=== PATIENT | male | born 1985 | race Two or more races ===

== ENCOUNTER 2020-07-10 11:23 | Emergency (ER) | payer MEDICAID, SELFPAY ==
--- NOTE | 2020-07-10 | ECG_ITS ---
Test Reason : CHEST PAIN Blood Pressure : / mmHG Vent. Rate : 070 BPM Atrial Rate : 070 BPM P-R Int : 158 ms QRS Dur : 092 ms QT Int : 376 ms P-R-T Axes : 061 058 018 degrees QTc Int : 406 ms Normal sinus rhythm Normal ECG When compared with ECG of 15-JUN-2014 14:34, No significant change was found Referred By: Generic ED Physician Electronically Signed By:Mayank Londono
[2020-07-10 11:31] VITALS: BP 156/95; PULSE 75; RESP 16; TEMP 36.7; O2SAT 98; BMI 37.1
--- NOTE | 2020-07-10 12:06 | ED_ITS ---
HPI - Chest Pain General Chief Complaint: Chest Pain Stated Complaint: arm numbness, chest pain Time Seen by Provider: 07/10/20 12:06 Source: patient Mode of arrival: ambulatory Limitations: no limitations History of Present Illness HPI narrative: 34-year-old male who presents emergency department for evaluation numbness, weakness and pain in his upper extremities from the elbows to his hands, x2 weeks. 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 He states the past 2 weeks he has been lifting heavy windows repetitively. He states that his arms become numb from the wrist down to the hands any develops pain in his fingers, mainly over the middle and ring fingers of both hands. He states that his hands seem to be weak and is having difficulty lifting the heavy windows. He states the pain is mild to moderate intensity and is intermittent. He states that yesterday he developed left-sided chest pain that lasted 1 hour. He again developed left- sided chest pain at 10:00 a.m. which is been on often lasting minutes. Describes the chest pain as a tightness. He denies any weakness in his lower extremities. He denied fever, chills, rhinorrhea, cough, shortness of breath, lightheadedness, dizziness, nausea, vomiting, abdominal pain, changes bowel movements. Related Data Previous Rx's Medication Instructions Recorded acetaminophen [Tylenol Extra 1,000 mg PO Q6H PRN #30 tab 07/10/20 Strength] ibuprofen 600 mg PO Q6H PRN #30 tab 07/10/20 Allergies Allergy/AdvReac Type Severity Reaction Status Date / Time No Known Allergies Allergy Verified 07/10/20 11:34 Review of Systems Review of Systems: Yes all other systems are reviewed and are negative [facility] Past Medical History [facility] Narrative: Patient has a history of sleep apnea but has not gotten a CPAP machine, also has history of hypertension. Surgical history of hernia repair as a child. The patient smokes 3 cigarettes per day times 10 years, he states that he drinks 1 or 2 beers per day, he denies drug use. Medical History (Updated 07/10/20 @ 12:53 by Azeem Alfredo MD) Anxiety HTN (hypertension) Sleep apnea Social History Social History Alcohol intake: current Alcohol intake frequency: 0-2 drinks per day Smoking Status: Current every day smoker Use of substances other than those prescribed or required for medical reasons: No Advance Directives: No Advance Directives Information Provided: No Physical Exam Vital Signs: Vital Signs: Last Vital Signs Temp 98.0 F 07/10/20 11:31 Pulse 75 07/10/20 11:31 Resp 16 07/10/20 11:31 BP 156/95 H 07/10/20 11:31 Pulse Ox 98 07/10/20 11:31 Body Mass Index 37.1 Const: General: cooperative and healthy appearing Orientation/consciousness: oriented to person and oriented to place Limitations: no limitations HENMT: Head: Yes normal to inspection, Yes normocephalic and Yes atraumatic Ears: external ears normal General nose exam: Normal external nose present Face and sinus: Yes normal facial exam Mouth: Normal oral and palatal mucosa present Throat: Yes posterior oropharynx normal Eyes: Periorbital: periorbital findings normal Eyelids: Yes eyelids normal Conjunctivae: conjunctivae normal Sclerae: sclerae normal Corneas: cor neas normal Pupils: Equal, round and reactive pupils present Direct Ophthalmoscopy: normal light reflex Neck: Neck: Yes full ROM, Yes no lymphadenopathy, Yes no meningeal signs, Yes trachea midline and Yes supple Chest: Chest palpation & inspection: normal inspection of the chest and normal palpation of entire chest wall Resp: Effort & Inspection: normal respiratory effort and able to speak in complete sentences Auscultation: clear to auscultation bilaterally Cardio: Rate: regular rate Rhythm: regular rhythm Heart sounds: S1 normal heart sound present, S2 normal heart sound present and no murmurs GI: Inspection: Yes normal to inspection Palpation (GI): Soft to palpation, nontender, no guarding, not rigid and No hepatosplenomegaly present : General: Yes no CVA tenderness Back/Spine/Pelvis: Back: no CVA tenderness Cervical Spine: normal cervical lordosis Thoracic/Lumbar Spine: thoracic and lumbar spine normal to inspection Skin: Lesions: no lesions Rashes: no rashes Wounds: no wounds Neuro: General: oriented to person, oriented to place and no meningeal signs Cranial nerves: Yes CN's II-XII intact bilaterally and Yes Equal, round and reactive pupils present Cognition (Neuro): normal cognition Motor exam (neuro): 5/5 motor strength present throughout Extrem: Other: The patient has pain that radiates to his hands with percussion over the carpal tunnels, with flexing his wrist for 2 minutes, he has pain, numbness and tingly sensation in his hands bilaterally worse in the middle and ring fingers of both hands. He also has tenderness with palpation of his forearm and over his medial and lateral areas of his elbows bilaterally. Gener al: Yes normal to inspection Psych: Appearance: well kempt Mental Status: mental status grossly normal Speech and movement: Normal speech and movement present Affect: normal affect Attitude: cooperative Thought process: Normal thought process present Thought content: Normal thought content present Course Course Course Narrative: 34-year-old male who presents emergency department for evaluation of bilateral hand, wrist and forearm pain and numbness x2 weeks. Patient's examination is suggestive of bilateral carpal tunnel syndrome, may also have repetitive motions syndrome of his forearms. I believe that his symptoms involve both the median and ulnar nerves based on his symptoms. I did discuss this with the patient. Patient was placed in bilateral forearm splints. He was advised to take ibuprofen and Tylenol. The patient will need to follow-up with Occupational Health to determine his return to work status. He was given a note not return to work for 2 days and he should follow up within 1- 2 days with Occupational Health. The patient is experiencing chest pain but do not think that this is secondary to coronary artery disease, his 12 EKG was unremarkable. The chest pain is most likely musculoskeletal pain and is probably related to his work as well. Discharge Plan Discharge Clinical Impression: Chest pain, Repetitive motion disorder of both forearms, Carpal tunnel syndrome on both sides Patient Disposition: Home, Self-Care Instructions: Carpal Tunnel Surgery (DC) Additional Instructions: Wear the forearm splints for 2 weeks, take the splints off 4 times a day and apply ice for 15 minutes to your wrists and forearms to help reduce the pain and swelling. Take ibuprofen 600 mg, 1 pill every 6 hours for the next 4-5 days to help reduce the pain and swelling. Take extra-strength Tylenol 500 mg pills, 1 pill every 6 hours as needed for pain. You need to talk your employer and determine which Occupational Health Clinic yo u can follow-up with. I want you to follow-up with occupational health clinic within 1-2 days to determine when he can go back to work and if you go back to work with limited duty. If your implore allows, you can go to our [facility] , [facility] Follow-up with that [facility] in 1-2 days. Please return to the emergency department if your symptoms get worse or if you develop any symptoms that are concerning to you. Prescriptions: New ibuprofen 600 mg tablet 600 mg PO Q6H PRN (Reason: pain) Qty: 30 RF: 0 acetaminophen [Tylenol Extra Strength] 500 mg tablet 1,000 mg PO Q6H PRN (Reason: pain) Qty: 30 RF: 0 Stand Alone Forms: Work/School Release
--- NOTE | 2020-07-10 12:45 | PC.NURSE ---
pt is currently asleep, respirations even and unlabored.
--- NOTE | 2020-07-10 12:54 | PC.NURSE ---
pt reports bilateral wrist tingling/numbess that is going on for about two weeks, denies chest pain/sob
[2020-07-10 12:55] VITALS: BP 141/90; PULSE 75; RESP 20; O2SAT 96
== END 2020-07-10 13:12 | disposition home or self-care (01) ==
PROVIDERS: Emergency Provider Emergency Medicine Emergency Medical Services
DX: R07.9 Chest pain, unspecified (principal); G56.03 Carpal tunnel syndrome, bilateral upper limbs; R20.0 Anesthesia of skin; I10 Essential (primary) hypertension; Z79.899 Other long term (current) drug therapy; F17.200 Nicotine dependence, unspecified, uncomplicated; Z71.6 Tobacco abuse counseling
CPT/HCPCS: 93005; 99284

== ENCOUNTER → 2020-07-11 14:13 | Outpatient (BNVA) | payer OTHER, SELFPAY | PROVIDERS: Visit Provider Physician Assistant Medical | DX: G56.03 Carpal tunnel syndrome, bilateral upper limbs (principal) | CPT/HCPCS: 99203 ==

== ENCOUNTER → 2020-07-16 15:32 | Outpatient (BNVA) | payer OTHER, SELFPAY | PROVIDERS: Visit Provider Physician Assistant | DX: G90.513 Complex regional pain syndrome I of upper limb, bilateral (principal); M54.2 Cervicalgia | CPT/HCPCS: 99214 ==

== ENCOUNTER → 2020-07-27 13:48 | Outpatient (BNVA) | payer OTHER, SELFPAY | PROVIDERS: Visit Provider Physician Assistant Medical | DX: M54.2 Cervicalgia (principal); R20.2 Paresthesia of skin; G56.00 Carpal tunnel syndrome, unspecified upper limb | CPT/HCPCS: 72050; 99213 ==

== ENCOUNTER 2020-07-30 15:30 | Outpatient (RCR) | payer OTHER, SELFPAY ==
--- NOTE | 2020-07-16 16:08 | MHC.OT.OEV ---
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 Also reports numbness that is greatest in the evening and wakes him up at night. Was issued B/L splints by [facility]. 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 Unable to use gym due to pain. Sleep: Wakes up frequently in pain with sleep, wears braces at night Driving: Reports numbness with driving, trouble gripping steering wheel with B/L splints donned. Pain Assessment Pain Score: 8 Pain Scale Used: Numeric (0 - 10) Pain Location and Description: Constant numbess, pain comes and goes in B/L elbows, wrists and hands Aggravating Factors: Use of arms Alleviating Factors: Takes ibuprofen and tylenol for pain, tiger blam, heat/ice Skin and Soft Tissue Assessment Skin and Soft Tissue: Other Comments: continue to assess with f/u sessions Nerve assessment Ulnar Nerve: B/L Impaired Median Nerve: B/L Impaired Radial Nerve: Comments: refer to special tests Sensory Assessment Temperature: WFL Light Touch: B/L Impaired Proprioception: Vibration: Comments: [place] Monofilaments: L Index, Ring, Small 3.61, Middle and Thumb 4.31 R Ring, Small 3.61, Thumb, Index, Middle 4.31 Edema Assessment Upper Extremity: Right Impaired Left Impaired Lower Extremity: Comments: L wrist circ 18.5, MP circ 21.7 cm R wrist circ 19 cm, MP circ 22.5 cm Dexterity Assessment Dexterity: Left Impaired Comments: Functional dexterity: R 24 sec (functional), L 34 sec (minimally functional) Special Tests Comments: Reverse Phalens: numbness/tingling in L small, ring, middle; R ring finger R Tinel's (+) MF tingling, L WFL R resisted MF test (-) R resisted wrist extension (-) B/L (-) Froment's sign ulnar N resisted adduction L>R, weakness noted AROM(PROM) Strength Cervical Cervical Flexion: Cervical Extension: Cervical Lateral Flexion: Cervical Rotation: Comments: Pain on L cervical spine with chin tuck Elbow Flexion: WFL Extension: WFL Pronation: Supination: Comments: Flexion: Extension: Pronation: Supination: Comments: Wrist Flexion: R 50, L 55 Extension: R 55, L 47 Ulnar Deviation: Radial Deviation: Comments: Flexion: Extension: Ulnar Deviation: Radial Deviation: Comments: Digits Index MCP: PIP: DIP: Long MCP: PIP: DIP: Ring MCP: PIP: DIP: Small MCP: PIP: DIP: Comments: Gross Grasp: R 67 lbs, L 65 lbs Lateral Pinch: R 24 lbs, L 21 lbs Two-Point Pinch: R 15 lbs, L 13 lbs Three-Jaw Nicho: R 23 lbs, L 16 lbs Comments: Gross grasp with elbow extended: R 105lbs, L 80 lbs Patient Education Primary Language: Bengali Input Output Clerk Required: No Current Knowledge: Understands information with skills for self-management Teaching Method: Demonstration Handouts Verbal Education Needs Identified on Evaluation: ADL's Disease Information Exercise Pain How did patient/family demonstrate learning? Patient demonstrates Patient verbalizes Barriers to Learning: None Readiness for Learning: Accepting Who was educated? 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 He reports numbness and tingling in B/L hands and pain in his B/L medial and lateral elbows. He is L hand dominant and appears to have increased symptoms in the L hand. He reports 86% limitations per the QuickDash. He would benefit from a trial of skilled OT to reduce symptoms and maximize function. STG Duration: 3 weeks Short Term Goals: Ind HEP Report minimal sleep disturbances Reports <3/10 pain with light activities/IADLs Improve functional dexterity test by 5 seconds in L hand for ADLs L wrist extension >50 degrees Report decrease in numbness/tingling with use of B/L brace Demo good body mechanics with heavy lifting/work related tasks Reports <70% per QuickDash LTG Duration: Leisure Travel Agent Goals: see above Frequency and Duration: The patient will be seen 3x/week for 3 weeks Treatment Plan: Therapeutic Exercise Therapeutic Activity Home Exercise Program Splinting Neuro Re-ed Patient Education Desensitization/Sensory Re-ed Edema Control ADL Training Ultrasound NMES Iontophoresis Paraffin Fluidotherapy MHP Cold Packs Joint Mobilization Soft Tissue Mobilization Kinesiotaping Electronically Signed By: Mei Oliveira OT/s Reviewed/agree with student documentation: Yes Therapist: ARPAN Dye/L Please sign and return to therapist, Thank you for your referral.
== END 2020-07-30 16:13 | disposition other institution (70) ==
LOC: HO.OT 15:30
PROVIDERS: Visit Provider Physician Assistant Medical
DX: G56.03 Carpal tunnel syndrome, bilateral upper limbs (principal)
CPT/HCPCS: 97035; 97110; 97140; 97167

== ENCOUNTER → 2020-08-10 09:16 | Outpatient (BNVA) | payer OTHER, SELFPAY | PROVIDERS: PCP Family Medicine; Visit Provider Physician Assistant Medical | DX: M54.2 Cervicalgia (principal); R20.2 Paresthesia of skin | CPT/HCPCS: 99213 ==

== ENCOUNTER → 2020-08-29 14:48 | Outpatient (BNVA) | payer OTHER, SELFPAY | PROVIDERS: PCP Family Medicine; Visit Provider Physician Assistant Medical | DX: M54.2 Cervicalgia (principal); R20.2 Paresthesia of skin | CPT/HCPCS: 99213 ==

== ENCOUNTER 2020-08-29 16:00 | Outpatient (RCR) | payer OTHER, MEDICAID, SELFPAY ==
--- NOTE | 2020-08-10 14:24 | MHC.PT.EP ---
[facility] [place] Office [place] Office [place] Office [address] Chacho Perry [address] [phone] F: [phone] F: [phone] F: [phone] F: [phone] Physical Therapy Plan of Care Date of Evaluation: 08/10/20 Date of Surgery: N/A Diagnosis: cervicalgia Assessment: pt's signs and symptoms are consistent w/ peripheral neuropathy. pt presents to physical therapy with pain, decreased range of motion, decreased strength, impaired functional mobility, and impaired postural awareness. pt is a good candidate for skilled PT due to age, potential remediation of impairments, typical disease/condition progression and prognosis, comorbidities, and motivation. pt would benefit from tailored strengthening and stretching exercise program, functional training, postural re-training, neuromuscular re-education, modalities as needed for pain, equipment safety demonstration. Frequency and Duration: The patient will be seen 2x/wk for 5 wks Short Term Goals: pt will be I w/ HEP to promote self-management of condition. pt will improve B cervical sidebending and rotation by 10 degrees to improve ADL tolerance and increase pt independence. Jail Goals: pt will tolerate lifting 15# object from floor to overhead x5 reps to facilitate return to work. 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 Treatment Plan: Modalities to reduce pain, spasms and effusion. Manual therapy to restore motion and function. Therapeutic exercise to improve strength and flexibility. Neuromuscular re-education for posture and balance. Therapeutic activities to return to functional activities of daily living. Electronically signed by: Ariana Hagen PT, DPT Please sign and return to therapist. Thank you for your referral.
--- NOTE | 2020-09-11 10:17 | MHC.PT.DC ---
[facility] [place] Office [place] Office [place] Office [address] Chacho Perry [address] [phone] F: [phone] F: [phone] F: [phone] F: [phone] Physical Therapy Discharge Report Diagnosis: cervicalgia Date of Surgery: N/A Date of Evaluation: 08/10/20 Date of Discharge: 09/11/20 Treatments to Date: 5 Cancellations to Date: 2 No Shows to Date: 3 Discharge Status: Visit Non-compliance Discharge Summary: The patient was reporting an improvement in his cervical pain and was tolerating therapeutic exercises and activities better. He has had poor attendance over the past couple weeks with three consecutive no shows. Per [facility] Core Therapy policy, which the patient was aware of and signed, he is to be discharged for non-compliance. He is discharged from this physical therapy plan of care at this time. Electronically signed by: Ariana Hagen PT, DPT Please sign and return to therapist. Thank you for your referral.
== END 2020-09-11 10:17 | disposition other institution (70) ==
LOC: HO.PT 16:00
PROVIDERS: PCP Family Medicine; Visit Provider Physician Assistant Medical
DX: M54.2 Cervicalgia (principal)
CPT/HCPCS: 97012; 97110; 97162

== ENCOUNTER 2020-09-04 08:05 | Outpatient (REF) | payer OTHER, SELFPAY | END 2020-09-04 08:06 | disposition home or self-care (01) | LOC: HO.MRI 08:05 | PROVIDERS: Visit Provider Internal Medicine | DX: Z13.89 Encounter for screening for other disorder (principal) ==

== ENCOUNTER → 2020-09-12 15:23 | Outpatient (BNVA) | payer OTHER, SELFPAY | PROVIDERS: PCP Family Medicine; Visit Provider Physician Assistant Medical | DX: M54.2 Cervicalgia (principal); R20.2 Paresthesia of skin; M54.10 Radiculopathy, site unspecified | CPT/HCPCS: 99213 ==

== ENCOUNTER → 2020-09-21 11:30 | Outpatient (BNVA) | payer OTHER, SELFPAY | PROVIDERS: PCP Family Medicine; Visit Provider Physician Assistant | DX: G56.03 Carpal tunnel syndrome, bilateral upper limbs (principal); G24.8 Other dystonia | CPT/HCPCS: 99214 ==

== ENCOUNTER 2020-10-04 09:45 | Outpatient (REF) | payer OTHER, SELFPAY ==
--- NOTE | 2020-10-04 10:00 | EMG_ITS ---
Bilateral median and ulnar motor and sensory studies were performed. Bilateral radial sensory studies were performed and paraspinal muscles were tested with a needle. IMPRESSION: 1. [id number] bilateral median neuropathy across carpal tunnel. 2. Mild right ulnar neuropathy across cubital tunnel. MD LACEY Weldon/DAVION / [id number]
== END 2020-10-04 09:46 | disposition home or self-care (01) ==
LOC: HO.NEURO 09:45
PROVIDERS: PCP Family Medicine; Visit Provider Internal Medicine
DX: M79.641 Pain in right hand (principal); M79.642 Pain in left hand
CPT/HCPCS: 95886; 95911

== ENCOUNTER 2020-10-04 10:15 | Outpatient (REF) | payer MEDICAID, SELFPAY ==
--- NOTE | ~2020-10-04 | US_ITS ---
EXAMINATION: US ABDOMEN COMPLETE CLINICAL INFORMATION: Fatty liver. COMPARISON: CT abdomen and pelvis with contrast 12/24/2018, abdominal wall 04/19/2018, 04/20/2017 TECHNIQUE: Real-time imaging of the abdominal viscera. FINDINGS: PANCREAS: The pancreas is largely obscured by bowel gas and not imaged. ABDOMINAL AORTA: The proximal, mid, and distal segments are normal in caliber. INFERIOR VENA CAVA: Visualized portions are normal. LIVER: The liver is mildly enlarged measuring 20.2 cm in length. The liver surface is smooth. There is increased hepatic echogenicity consistent with hepatic steatosis. Minor focal sparing is seen adjacent to the gallbladder. There is no hepatic parenchymal lesion or intrahepatic ductal dilatation. Doppler shows portal flow towards the liver. GALLBLADDER: Gallbladder is distended normally. There is no stone or sludge or wall thickening. There is a stable solitary polyp dependent gallbladder near the fundus measuring 0.5 cm, similar to prior exam. Negative sonographic Davies's sign. No pericholecystic fluid. COMMON BILE DUCT: Normal in caliber measuring 0.3 cm in diameter. RIGHT KIDNEY: Normal. No hydronephrosis. No renal calculi or focal parenchymal lesions. The kidney measures 11.0 cm in maximum dimension. LEFT KIDNEY: Normal. No hydronephrosis. No renal calculi or focal parenchymal lesions. The kidney measures 13.3 cm in maximum dimension. SPLEEN: The spleen is upper limits of normal measuring 13.2 cm. The liver parenchyma is homogeneous. FREE FLUID: None. US/US abdomen complete IMPRESSION: 1. Mild hepatomegaly secondary to hepatic steatosis. 2. Stable gallbladder polyp 0.5 cm. No cholelithiasis, gallbladder wall thickening, or ductal dilatation. 3. Pancreas obscured by bowel gas and not imaged.
== END 2020-10-04 10:16 | disposition home or self-care (01) ==
LOC: HO.US 10:15
PROVIDERS: Visit Provider Family Medicine
DX: K76.0 Fatty (change of) liver, not elsewhere classified (principal); K82.4 Cholesterolosis of gallbladder
CPT/HCPCS: 76700

== ENCOUNTER → 2020-10-22 | Outpatient (BNVA) | payer OTHER, SELFPAY | PROVIDERS: PCP Family Medicine; Visit Provider Physician Assistant | DX: G56.03 Carpal tunnel syndrome, bilateral upper limbs (principal); G24.9 Dystonia, unspecified | CPT/HCPCS: 99213 ==

== ENCOUNTER → 2020-10-26 11:07 | Outpatient (BNVA) | payer OTHER, SELFPAY | PROVIDERS: PCP Family Medicine; Visit Provider Orthopaedic Surgery | DX: G56.03 Carpal tunnel syndrome, bilateral upper limbs (principal); G56.21 Lesion of ulnar nerve, right upper limb; M65.341 Trigger finger, right ring finger | CPT/HCPCS: 99202 ==

== ENCOUNTER 2020-11-13 09:19 | Day surgery (SDC) | payer OTHER, SELFPAY ==
[2020-11-07 13:08] VITALS: BMI 37.1
--- NOTE | 2020-11-12 10:59 | HO.ANESPROP2 ---
Documented by User: Stephanie Fanney 11/12/20 11:04 HPI - Anesthesia Eval Consult details Narrative: 35yo M for right Ring Finger Cubital Tunnel Release vs Transposition, Carpal Tunnel Release, A1 Rambo Trigger Release PMFSH Active Problems Active Problems: All Active Problems (Updated 10/26/20 @ 11:56 by Margareth Jama MD) Carpal tunnel syndrome of left wrist (Acute) Trigger finger, right ring finger (Acute) Cubital tunnel syndrome on right (Acute) Carpal tunnel syndrome of right wrist (Acute) Cervicalgia (Acute) Past Medical History Medical History Anxiety HTN (hypertension) Sleep apnea Social History Social History Alcohol intake: current Alcohol intake frequency: 0-2 drinks per day Patient Tobacco Use Status: Current everyday Tobacco user Use of substances other than those prescribed or required for medical reasons: No Have you been hit, kicked, punched, or otherwise hurt by someone within the past year? 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 Rate : 070 BPM Atrial Rate : 070 BPM P-R Int : 158 ms QRS Dur : 092 ms QT Int : 376 ms P-R-T Axes : 061 058 018 degrees QTc Int : 406 ms Normal sinus rhythm Normal ECG When compared with ECG of 15-JUN-2014 14:34, No significant change was found Assessment and Plan Assessment Anesthesia Assessment: Chart Reviewed Documented by User: Denton Shields MD 11/13/20 10:20 PMFSH Past Medical History Medical History Anxiety HTN (hypertension) Sleep apnea Social History Social History Alcohol intake: current Alcohol intake frequency: 0-2 drinks per day Patient Tobacco Use Status: Current everyday Tobacco user Use of substances other than those prescribed or required for medical reasons: No Have you been hit, kicked, punched, or otherwise hurt by someone within the past year? 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 Meds Allergies Allergy/AdvReac Type Severity Reaction Status Date / Time No Known Allergies Allergy Verified 11/13/20 09:37 Home Medications Medication Instructions Recorded Confirmed Last Taken Type cholecalciferol (vitamin D3) 1 tab PO DAILY 11/07/20 11/07/20 Unknown History hydrochlorothiazide 1 tab PO DAILY 11/07/20 11/07/20 Unknown History Exam Airway Mallampati Class: II TM Dist: >3cm Neck ROM: Full Loose/Missing/Broken Teeth: No Other: Short thick neck, facial hair Assessment and Plan Assessment Anesthesia Assessment: Anesthesia Plan Discussed and Chart Reviewed Final Anesthetic Review NPO: Yes ASA Class: II Final Preanesthetic Review: No Changes in Pt Med Stat, Meds/Allgs Chart Reviewed, Consent Obtained/Reviewed and Anes Risks/Benef Reviewed Patient Risk: High Procedure Risk: Low Anesthetic Plan Anesthetic Plan: GA Disposition: Standard PACU
[2020-11-13] VITALS (7 sets, daily range): BP systolic 141–186; BP diastolic 85–112; PULSE 96–116; RESP 18–20; TEMP 36.5–36.7; O2SAT 93–98
--- NOTE | 2020-11-13 09:13 | P.OP_ITS ---
Operative Note Operative Note Date of Service: 11/13/20 Narrative: Operative Note Narrative: Preop diagnosis: 1. right Cubital tunnel syndrome 2. Right carpal tunnel syndrome 3. Right ring finger trigger finger 4. Right middle finger trigger finger Postop diagnosis: Same Procedure: 1. right Cubital Tunnel Release and anterior transposition 2. Right carpal tunnel release 3. Right ring finger A1 amado release 4. Right middle finger A1 amado release Surgeon: Margareth Jama MD Anesthesia: General Findings: Thickening and fibrosis about the ulnar nerve at the cubital tunnel with an hourglass deformity of the ulnar nerve at the cubital tunnel Implants: none Tourniquet time: 60 minutes EBL: 5.0 ml Specimen: none Drains: None Complications: None Disposition: Brought to the recovery room in stable condition Plan: Follow-up in 10-14 days for wound check, and suture removal Indications: The patient is 35 years old man with right cubital tunnel syndrome, right carpal tunnel syndrome, and a right ring finger trigger finger . The risks and benefits of operative treatment, including but not limited to risk of damage to blood vessels, nerves, tendons, infection, recurrence, persistent pain or numbness, incomplete resolution of preoperative symptoms, or need for further surgery were discussed with the patient and they wished to proceed with surgery. Procedure: Once consent was obtained patient was brought back to the operating suite and placed in the operating table in a supine position. Perioperative antibiotics and anesthesia was administered by the anesthesia team. The limb was prepped and draped in a standard surgical fashion, and a sterile tourniquet applied to the proximal aspect of the right upper extremity. The limb was elevated exsanguinated with Esmarch bandage and the tourniquet inflated to 250 mm of mercury for a total tourniquet time of 60 minutes. Once assured that we had a good block, a 1.5 cm longitudinal incision was made centered over the right carpal tunnel. The incision was made through the skin to the subcutaneous tissues using a #15 blade. Dissection was made down to the level of the transverse carpal ligament with care being taken to protect the palmar cutaneous nerve. Once the transverse carpal ligament was clearly visualized, a longitudinal incision was made in the transverse carpal ligament 1st using a #15 blade, then using tenotomy scissors under direct visualization. Care was taken to look for and protect the motor branch of the median nerve when seen in this area. Once satisfied with our carpal tunnel release the wound was irrigated with normal saline. Once assured that we had a good block, a 1.5 cm oblique incision was made centered over the A1 amado of the right ring finger . The incision was made through the skin to the subcutaneous tissues using a #15 blade. Careful dissection was made down to the level of the A1 amado using tenotomy scissors, with care being taken to protect the nearby neurovascular structures. A longitu dinal incision was made in the A1 amado 1st using a #15 blade, then using tenotomy scissors under direct visualization. The A1 amado was noted to be thickened. Following our A1 amado release, we no longer saw any locking or catching of the digit with flexion and extension. Once assured that we had a good block, a 1.5 cm oblique incision was made centered over the A1 amado of the right middle finger . The incision was made through the skin to the subcutaneous tissues using a #15 blade. Careful dissection was made down to the level of the A1 amado using tenotomy scissors, with care being taken to protect the nearby neurovascular structures. A longitudinal incision was made in the A1 amado 1st using a #15 blade, then using tenotomy scissors under direct visualization. The A1 amado was noted to be thickened. Following our A1 amado release, we no longer saw any locking or catching of the digit with flexion and extension. A 6 cm gently curved but longitudinally oriented incision was made centered over the cubital tunnel of the right upper extremity. Incision was made through the skin to the subcutaneous tissues using a # 15 Blade. I then dissected down to the level of the medial epicondyle and the cubital tunnel using tenotomy scissors. Care was taken to protect the lateral antebrachial cutaneous nerve. The ulnar nerve was identified just posterior to the medial intermuscular septum. Small vessel loop was passed behind the ulnar nerve and used to apply gentle traction to facilitate our release. The ulnar nerve was released in a proximal to distal direction using tenotomy in iris scissors while directly visualizing and protecting the ulnar nerve. Thickening and fibrosis was appreciated about the ulnar nerve as it passed through the cubital tunnel. The ulnar nerve was assessed as I passed the elbow through full flexion and extension and was found to subluxate over the medial epicondyle. As the ulnar nerve appeared to subluxate over the medial epicondyle, the decision was made to proceed with an anterior ulnar nerve transposition. The subcutaneous tissue was carefully freed from the fascia anterior to the medial epicondyle creating an appropriate bed for the ulnar nerve transposition. The ulnar nerve was then freed and carefully transposed anterior to the medial epicondyle. Some of the subcutaneous fat in the anterior flap of tissues was carefully secured to the fascia about the medial epicondyle using some 3-0 Vicryl suture material. This created a sling to prevent posterior subluxation of the ulnar nerve. The ulnar nerve was evaluated in its transposition site and found to have good ability to glide and to be free from undo pressure from the anterior sling. At this point the tourniquet was deflated and hemostasis obtained with a brief period of local pressure and bipolar electrocautery. The wound was copiously irrigated with normal saline. The subcutaneous layer was closed with 4-0 Vicryl suture, and the skin edges were reapproximated with 5-0 nylon suture. The wound was infiltrated with some 0.25% plain Marcaine for postop pain control and sterile dressings and a posterior splint was applied. The patient appears to have tolerated the procedure well and with no complications. All digits were well vascularized conclusion of the case.
--- NOTE | 2020-11-13 09:53 | MHC.SHP ---
Pre-Procedural Eval Section A Date of Service: 11/13/20 Section B Chief Complaint: Trigger Finger, Carpal Tunnel syndrome, Lesion Allergies: Allergies Allergy/AdvReac Type Severity Reaction Status Date / Time No Known Allergies Allergy Verified 11/13/20 09:37 Plan I have reviewed the history and physical and performed a pertinent physical examination on my patient. No changes have occurred unless specified.
[2020-11-13] MEDS: Lactated Ringers 1,000 ML 100 ML IVCONT (10:05)
--- NOTE | 2020-11-13 10:18 | MHC.SHP ---
Pre-Procedural Eval Section A Date of Service: 11/13/20 Section B Chief Complaint: Trigger Finger, Carpal Tunnel syndrome, Lesion Allergies: Allergies Allergy/AdvReac Type Severity Reaction Status Date / Time No Known Allergies Allergy Verified 11/13/20 09:37 Plan I have reviewed the history and physical and performed a pertinent physical examination on my patient. the patient demonstrated that he now has a right middle finger trigger finger as well , and would like to have that taken care of. We added that to the consent and both initialed the consent to note that it was added.
[2020-11-13] MEDS: oxyCODONE HCl Immed Release 5 MG TABLET PO (13:01)
[2020-11-13] MEDS: Acetaminophen 325 MG TABLET 975 MG PO (13:02)
[2020-11-13] MEDS: Ketorolac Tromethamine 30 MG/ML VIAL IVPUSH (13:04)
== END 2020-11-13 12:45 | disposition home or self-care (01) ==
PROVIDERS: PCP Family Medicine; Visit Provider Orthopaedic Surgery
PROC: (CPT 64718; principal; 2020-11-13 11:00)
DX: G56.01 Carpal tunnel syndrome, right upper limb (principal); M65.341 Trigger finger, right ring finger; M65.331 Trigger finger, right middle finger; G56.21 Lesion of ulnar nerve, right upper limb; I10 Essential (primary) hypertension; G47.33 Obstructive sleep apnea (adult) (pediatric); F41.9 Anxiety disorder, unspecified; Z79.899 Other long term (current) drug therapy
CPT/HCPCS: 64721; 26055 ×2; 64718; J0690; J1100; J1885; J2250; J2405; J3010

== ENCOUNTER → 2020-11-21 15:23 | Outpatient (BNVA) | payer OTHER, SELFPAY | PROVIDERS: PCP Family Medicine; Visit Provider Physician Assistant | DX: M65.341 Trigger finger, right ring finger (principal); G56.21 Lesion of ulnar nerve, right upper limb; G56.01 Carpal tunnel syndrome, right upper limb | CPT/HCPCS: 99212 ==

== ENCOUNTER → 2020-11-26 12:54 | Outpatient (BNVA) | payer OTHER, SELFPAY | PROVIDERS: Visit Provider Orthopaedic Surgery | DX: G56.02 Carpal tunnel syndrome, left upper limb (principal); M65.341 Trigger finger, right ring finger; M65.331 Trigger finger, right middle finger; G56.21 Lesion of ulnar nerve, right upper limb | CPT/HCPCS: 99212 ==

== ENCOUNTER 2020-12-25 09:28 | Outpatient (RCR) | payer OTHER, MEDICAID, SELFPAY ==
--- NOTE | 2020-12-25 11:02 | MHC.OT.OEV ---
[address] [phone] F: [phone] Occupational Therapy Evaluation Diagnosis: Post-op R CTR, right D3 A1 amado release and ulnar nerve Date of Onset: Date of Surgery: 11/13/20 Attending Provider: Dr Jama Prescribed Treatment: Eval and Treat, desensitization MD Follow Up Appointment: History of Current Condition: 35 yo male w/ onset of carpal tunnel symptoms, cubital tunnel syndrome and right D3-D4 triggers since this past June, tried conservative treatment w/ OT with no significant improvements. EMG show [id number] bilateral median neuropathy across carpal tunnel. and mild right ulnar neuropathy across cubital tunnel. He is now post-op right carpal tunnel release and release A1 amado at D3-D4, as well as right cubital tunnel release and anterior transposition. He now presents for post-op rehab, continues to have pain in digits and palm and numbness at medial elbow. 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 prior to onset Enjoys writing music, plays basketball, working with exotic animals (snakes, fish, reptiles, etc) Living Situation, Family and/or Social Support: Lives alone Current Level of Function and Occupation Self Care, Employment, Leisure: Out of work since onset of injury Friend assists w/ lifting tanks and caring for animals Not playing basketball Using left hand primarily for day to day tasks Sleep: Able to wake, pain on waking Driving: Using transportation Vision: Balance: Pain Assessment Pain Score: Pain Scale Used: Pain Location and Description: Pain free at rest, increases with finger movement (up to 10) Medial elbow pain and numbness, especially w/ pressure on elbow (leaning forward on arms) Aggravating Factors: gripping, finger ROM Alleviating Factors: Ice, rest Skin and Soft Tissue Assessment Skin and Soft Tissue: Comments: Well healing surgical incisions at medial elbow, over carpal tunner and over D3-D4 volar MCP Nerve assessment Ulnar Nerve: WNL Median Nerve: WNL Radial Nerve: WNL Comments: Sensory Assessment Temperature: WFL Light Touch: WFL Proprioception: WFL Vibration: Comments: Ehrhardt Mery B/L palms 3.61, medial elbow 3.61 Hypersensitivity over medial elbow incision site Edema Assessment Upper Extremity: Lower Extremity: Comments: Figure 8 R 49.3 cm L 48.5 cm Dexterity Assessment Dexterity: WFL Comments: Special Tests Comments: AROM(PROM) Strength Cervical Cervical Flexion: Cervical Extension: Cervical Lateral Flexion: Cervical Rotation: Comments: WFL Shoulder Flexion: Extension: Abduction: Internal Rotation: External Rotation: Comments: WFL Flexion: Extension: Abduction: Internal Rotation: External Rotation: Comments: Elbow Flexion: Extension: Pronation: Supination: Comments: WFL Flexion: Extension: Pronation: Supination: Comments: Wrist Flexion: Extension: Ulnar Deviation: Radial Deviation: Comments: WFL Flexion: Extension: Ulnar Deviation: Radial Deviation: Comments: Thumb Thumb CMC Flexion: Thumb MCP Flexion: Thumb IP Flexion: Radial Abduction: Palmar Abduction: Denison (Kapandji 0-10): Comments: Decreased end range opposition B/L'ly Digits Index MCP: PIP: DIP: Long MCP: PIP: DIP: Ring MCP: PIP: DIP: Small MCP: PIP: DIP: Comments: Decreased hook fist, intrinsic tightness, but WFL Gross Grasp: R 25lb L 95lb Lateral Pinch: R 14 L 20 Two-Point Pinch: R 5 L 10 Three-Jaw Nicho: R 6 L 15 Comments: Patient Education Primary Language: Nepali Rodbuster Required: No Current Knowledge: Understands information with skills for self-management Teaching Method: Demonstration Handouts Verbal Education Needs Identified on Evaluation: ADL's Disease Information Equipment Use Exercise Pain How did patient/family demonstrate learning? Patient demonstrates Patient verbalizes Barriers to Learning: None Readiness for Learning: Accepting Who was educated? Patient Comments: Plan of Care Assessment: 35 yo left hand dominant male w/ hx of carpal tunnel syndrome, cubital tunnel syndomre and ring and long finger triggering, presents to OT post-op right carpal tunnel release, cubital tunnel release and D3-D4 A! puller release. He continues to have hypersensitivity over medial elbow incision site, pain in palm across carpal tunnel release site and volar MCPs with palpable tightness from scar tissue and edema. 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 He will benefit from cont'd therapy services to address scar management w/ mobilization and desensitization, while progressing range and strength for everyday use with ultimate goal of returning to work. 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: Gross grasp >60lb QuickDASH score <40 pts Ind w/ progression of textures and time w/ scar desensitization Pt to demo full weightbearing through right palm w/ minimal pain Pt to demo lift and carry >35lb bimanually Frequency and Duration: The patient will be seen 2x/wk for 4 weeks Treatment Plan: Therapeutic Exercise Therapeutic Activity Home Exercise Program Neuro Re-ed Patient Education Desensitization/Sensory Re-ed Edema Control ADL Training Paraffin Fluidotherapy MHP Cold Packs Soft Tissue Mobilization Kinesiotaping Electronically Signed By: Gayatri Tadeo OTR/L Reviewed/agree with student documentation: N/A Therapist: Please sign and return to therapist, Thank you for your referral.
--- NOTE | 2021-01-08 10:56 | MHC.OT.DC ---
[address] [phone] F: [phone] Occupational Therapy Discharge Note Provider: Dr Jama Diagnosis: Post-op R CTR, right D3 A1 amado release and ulnar nerve Date of Surgery: 11/13/20 Date of Evaluation: 12/25/20 Date of Discharge: 01/08/21 Treatments to Date: 1 No Shows to Date: 4 Discharge Summary: 35 yo male was referred to OT post-op right carpal tunnel release, cubital tunnel release and D3-D4 A1 puller release. He was seen for initial assessment and has since no-showed for all other visits. We will discharge from services at this time due to our no-show/cancellation policy. Electronically Signed By: Gayatri Tadeo OTR/L Please Sign and return to therapist, thank you for your referral.
== END 2021-01-15 10:59 | disposition home or self-care (01) ==
LOC: HO.OT 09:28
PROVIDERS: Visit Provider Orthopaedic Surgery
DX: M65.331 Trigger finger, right middle finger (principal); M65.341 Trigger finger, right ring finger; G56.21 Lesion of ulnar nerve, right upper limb; G56.01 Carpal tunnel syndrome, right upper limb
CPT/HCPCS: 97110; 97112; 97140; 97166

== ENCOUNTER → 2021-02-05 12:41 | Outpatient (BNVA) | payer OTHER, MEDICAID, SELFPAY | PROVIDERS: PCP Family Medicine; Visit Provider Orthopaedic Surgery | DX: G56.03 Carpal tunnel syndrome, bilateral upper limbs (principal); G56.21 Lesion of ulnar nerve, right upper limb; M65.331 Trigger finger, right middle finger; M65.341 Trigger finger, right ring finger | CPT/HCPCS: 99212 ==

== ENCOUNTER 2021-02-21 06:53 | Day surgery (SDC) | payer OTHER, SELFPAY ==
--- NOTE | 2021-02-20 08:59 | P.CONAN_ITS ---
Documented by User: Stephanie Santana NP 02/20/21 09:00 HPI - Anesthesia Eval Consult details Narrative: 35yo M for Left Carpal Tunnel Release PMFSH Active Problems Active Problems: All Active Problems (Updated 11/26/20 @ 13:17 by Margareth Jama MD) Cervicalgia (Acute) Carpal tunnel syndrome of right wrist (Acute) Cubital tunnel syndrome on right (Acute) Trigger finger, right ring finger (Acute) Carpal tunnel syndrome of left wrist (Acute) Trigger finger, right middle finger (Acute) Past Medical History Medical History Anxiety HTN (hypertension) Sleep apnea Surgical History Surgical History History of carpal tunnel surgery of right wrist History of inguinal hernia repair Social History Social History Alcohol intake: current Alcohol intake frequency: other Patient Tobacco Use Status: Current everyday Tobacco user Cigarette Packs Per Day: 0.2 Cigarettes Per Day: 4.0 Smoked in Last 30 Days: Yes Are you DNR?: No Advance Directives: No Advance Directives Information Provided: Yes Current occupational status: unemployed 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 [employer] Meds Allergies Allergy/AdvReac Type Severity Reaction Status Date / Time No Known Allergies Allergy Verified 02/15/21 13:47 Home Medications Medication Instructions Recorded Confirmed Last Taken Type cholecalciferol (vitamin D3) 50 1 tab PO DAILY 11/07/20 02/15/21 Unknown History mcg (2,000 unit) tablet hydrochlorothiazide 25 mg tablet 1 tab PO DAILY 11/07/20 02/15/21 Unknown History Exam Exam Date and Time: February 20, 2021 0859 Assessment and Plan Assessment Anesthesia Assessment: Chart Reviewed Documented by User: Denton Shields MD 02/21/21 08:43 PMFSH Past Medical History Medical History Anxiety HTN (hypertension) Sleep apnea Family History Family history of problems with anesthesia: No Surgical History Surgical History History of carpal tunnel surgery of right wrist History of inguinal hernia repair History of Problems with Anesthesia: No Social History Social History Alcohol intake: current Alcohol intake frequency: other Patient Tobacco Use Status: Current everyday Tobacco user Cigarette Packs Per Day: 0.2 Cigarettes Per Day: 4.0 Smoked in Last 30 Days: Yes Are you DNR?: No Advance Directives: No Advance Directives Information Provided: Yes Current occupational status: unemployed 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 Meds Allergies Allergy/AdvReac Type Severity Reaction Status Date / Time No Known Allergies Allergy Verified 02/15/21 13:47 Home Medications Medication Instructions Recorded Confirmed Last Taken Type cholecalciferol (vitamin D3) 50 1 tab PO DAILY 11/07/20 02/15/21 Unknown History mcg (2,000 unit) tablet hydrochlorothiazide 25 mg tablet 1 tab PO DAILY 11/07/20 02/15/21 Unknown History Exam Airway Mallampati Class: IV TM Dist: >3cm Neck ROM: Limited Assessment and Plan Assessment Anesthesia Assessment: Anesthesia Plan Discussed Final Anesthetic Review Family History of Problems with Anesthesia: No History of Problems with Anesthesia: No NPO: Yes ASA Class: III Final Preanesthetic Review: No Changes in Pt Med Stat, Meds/Allgs Chart Reviewed, Consent Obtained/Reviewed and Anes Risks/Benef Reviewed Patient Risk: High Procedure Risk: Low Anesthetic Plan Anesthetic Plan: MAC: Disposition: Standard PACU
[2021-02-21] VITALS (18 sets, daily range): BP systolic 105–153; BP diastolic 62–92; PULSE 75–97; RESP 20–40; TEMP 36.6–36.9; O2SAT 85–98; BMI 37.1
--- NOTE | 2021-02-21 07:44 | MHC.SHP ---
Pre-Procedural Eval Section A Date of Service: 02/21/21 The patient is an INPATIENT: No Changes since office visit: No Cold of Flu in the past 2 weeks, No New Medical Problems, No Changes in Medication and No Patient answered all questions The History & Physical has been completed within 30 days and I have reviewed it.: Yes Section B Chief Complaint: carpal tunne Allergies: Allergies Allergy/AdvReac Type Severity Reaction Status Date / Time No Known Allergies Allergy Verified 02/15/21 13:47 Plan I have reviewed the history and physical and performed a pertinent physical examination on my patient. No changes have occurred unless specified.
--- NOTE | 2021-02-21 07:45 | W.PM.OPN ---
Operative Note Operative Note Date of Service: 02/21/21 Narrative: Preop diagnosis: 1. left Carpal tunnel syndrome Postop diagnosis: same Procedure: 1. left Carpal tunnel release Surgeon: Margareth Jama MD Anesthesia: mac plus local Findings: Thickened transverse carpal ligament. EBL: Less than 5 mL Specimens: None Complications: None Disposition: Brought to recovery room in stable condition Plan: Follow-up for 7-10 days for wound check and suture removal Indications: The patient is 35 years old, with left carpal tunnel syndrome that has been unresponsive to nonoperative management. The risks and benefits of operative treatment including but not limited to risk of damage to blood vessels, nerves, tendons, infection, persistent pain, persistent symptoms, or possible need for additional surgery were discussed with the patient and the patient wishes to proceed with surgery. Procedure: Once consent was obtained the patient was then brought back to the operating suite and placed on the operative table in supine position. A tourniquet was applied to the proximal aspect of the left upper extremity and the limb was prepped and draped in a standard surgical fashion. MAC anesthesia was performed by the anesthesia team. A 1.5 cm longitudinal incision was made centered over the carpal tunnel. The incision was made through the skin to the subcutaneous tissues using a #15 blade. Dissection was made down to the level of the transverse carpal ligament with care being taken to protect the palmar cutaneous nerve. Once the transverse carpal ligament was clearly visualized, a longitudinal incision was made in the transverse carpal ligament 1st using a #15 blade, then using tenotomy scissors under direct visualization. Care was taken to look for and protect the motor branch of the median nerve when seen in this area. Once satisfied with our carpal tunnel release the wound was copiously irrigated with normal saline and hemostasis was obtained with a brief period of local pressure. The skin edges were reapproximated with some 5.0 nylon suture material the wound was infiltrated with some 1% lidocaine with epinephrine for postop pain control,and a sterile dressing was applied. The patient appears to have tolerated the procedure well and with no complications. All digits were well vascularized at the conclusion of the case.
[2021-02-21] MEDS: Lactated Ringers 1,000 ML 100 ML IVCONT (07:52)
[2021-02-21] MEDS: Albuterol Sulfate (0.083%) 2.5 MG/3 ML VIAL.NEB INHALE (08:51)
== END 2021-02-21 12:38 | disposition home or self-care (01) ==
PROVIDERS: PCP Family Medicine; Visit Provider Orthopaedic Surgery
PROC: (CPT 64721; principal; 2021-02-21 07:30)
DX: G56.02 Carpal tunnel syndrome, left upper limb (principal); M25.521 Pain in right elbow; G47.33 Obstructive sleep apnea (adult) (pediatric); I10 Essential (primary) hypertension; Z79.899 Other long term (current) drug therapy; F17.210 Nicotine dependence, cigarettes, uncomplicated
CPT/HCPCS: 64721; 94640; J1100; J2250; J2405; J3010

== ENCOUNTER 2021-04-17 09:00 | Outpatient (RCR) | payer OTHER, MEDICAID, SELFPAY ==
--- NOTE | 2021-04-17 10:17 | MHC.OT.DC ---
[address] [phone] F: [phone] Occupational Therapy Discharge Note Provider: Margareth Jama Diagnosis: Left CTR 02/21/21 Right CTR, Right Cubital Tunnel Release, Right trigger finger release D3-4 Date of Surgery: 02/21/21 Date of Evaluation: 04/02/21 Date of Discharge: Treatments to Date: 3 Cancellations to Date: 0 No Shows to Date: 0 Discharge Status: Discharge Summary: 8 wks left CTR. Improvement in pain . Discomfort-Pain with pressure on the wrist and palm. ie trialed push ups, 12/11 and reports unable to light an empty 100 lb fish tank. Pt also reports left ulnar hand cramping with writing. On the right ,pain at the elbow is essentially only with cold and wet weather. he denies right wrist or hand pain. Pt demonstrates good endurance and tolerance to lifting mod heavy/ 25 lb simulated work tasks. Pt has experience with strength training and is independent with his HEP Goals met. I anticipate he will be able to return to work with little difficulty at 10 wks po when medically cleared at MD follow up on 04/30/21. Electronically Signed By: Christy Randall OT CHT CLT Reviewed/agree with student documentation: N/A Therapist: Please Sign and return to therapist, thank you for your referral.
== END 2021-04-17 10:18 | disposition home or self-care (01) ==
LOC: HO.OT 09:00
PROVIDERS: PCP Family Medicine; Visit Provider Orthopaedic Surgery
DX: G56.03 Carpal tunnel syndrome, bilateral upper limbs (principal); G56.21 Lesion of ulnar nerve, right upper limb; M65.331 Trigger finger, right middle finger; M65.341 Trigger finger, right ring finger
CPT/HCPCS: 97110; 97166; 97530

== ENCOUNTER → 2021-06-11 15:45 | Outpatient (BNVA) | payer OTHER, MEDICAID, SELFPAY | PROVIDERS: Visit Provider Orthopaedic Surgery | DX: G56.03 Carpal tunnel syndrome, bilateral upper limbs (principal); G56.21 Lesion of ulnar nerve, right upper limb; M65.341 Trigger finger, right ring finger; M65.331 Trigger finger, right middle finger | CPT/HCPCS: 99212 ==

== ENCOUNTER → 2021-08-06 12:09 | Outpatient (BNVA) | payer OTHER, MEDICAID, SELFPAY | PROVIDERS: PCP Family Medicine; Visit Provider Orthopaedic Surgery | DX: R20.0 Anesthesia of skin (principal); R20.2 Paresthesia of skin | CPT/HCPCS: 99212 ==

== ENCOUNTER → 2021-09-20 09:44 | Outpatient (BNVA) | payer MEDICAID, SELFPAY | PROVIDERS: PCP Family Medicine; Visit Provider Surgery | DX: K42.9 Umbilical hernia without obstruction or gangrene (principal) | CPT/HCPCS: 99202 ==

== ENCOUNTER 2021-10-14 05:56 | Day surgery (SDC) | payer MEDICAID, SELFPAY ==
[2021-10-08 13:58] VITALS: BMI 38.7
--- NOTE | 2021-10-11 09:17 | P.CONAN_ITS ---
Documented by User: Stephanie Santana NP 10/11/21 09:17 HPI - Anesthesia Eval Consult details Narrative: 36yo M for Hernia Repair Umbilical with mesh s/p carpal tunnel repair 02/2021 with GA-LMA 5 PMFSH Active Problems Active Problems: All Active Problems (Updated 09/20/21 @ 10:07 by Rodney Hays MD) Umbilical hernia (Acute) Numbness and tingling in both hands (Acute) Cervicalgia (Acute) Carpal tunnel syndrome of right wrist (Acute) Cubital tunnel syndrome on right (Acute) Trigger finger, right ring finger (Acute) Carpal tunnel syndrome of left wrist (Acute) Trigger finger, right middle finger (Acute) Past Medical History Medical History Anxiety HTN (hypertension) Sleep apnea Family History Family history of problems with anesthesia: No Surgical History Surgical History History of carpal tunnel surgery of right wrist History of inguinal hernia repair History of Problems with Anesthesia: No Social History Social History Alcohol intake: current Alcohol intake frequency: other Patient Tobacco Use Status: Current everyday Tobacco user Tobacco use type: Cigarette Cigarette Packs Per Day: 0.2 Cigarettes Per Day: 4.0 Smoked in Last 30 Days: Yes Patient Interested in Nicotine Replacement: No Use of substances other than those prescribed or required for medical reasons: Yes Substance Use Type Other:: pt has occ. marijuana. 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 Meds Allergies Allergy/AdvReac Type Severity Reaction Status Date / Time No Known Allergies Allergy Verified 10/14/21 06:09 Home Medications Medication Instructions Recorded Confirmed Last Taken Type cholecalciferol (vitamin D3) 50 1 tab PO DAILY 11/07/20 09/20/21 Unknown History mcg (2,000 unit) tablet hydrochlorothiazide 25 mg tablet 1 tab PO DAILY 11/07/20 09/20/21 10/13/21 History Exam Exam Date and Time: October 11, 2021 0917 Height,Weight and Vital Signs: Height 5 ft 6 in Weight 108.862 kg Assessment and Plan Assessment Anesthesia Assessment: Chart Reviewed Final Anesthetic Review Family History of Problems with Anesthesia: No History of Problems with Anesthesia: No Documented by User: Magda Lopez MD 10/14/21 08:02 [facility] Past Medical History Medical History Anxiety HTN (hypertension) Sleep apnea Surgical History Surgical History History of carpal tunnel surgery of right wrist History of inguinal hernia repair Social History Social History Alcohol intake: current Alcohol intake frequency: other Patient Tobacco Use Status: Current everyday Tobacco user Tobacco use type: Cigarette Cigarette Packs Per Day: 0.2 Cigarettes Per Day: 4.0 Smoked in Last 30 Days: Yes Patient Interested in Nicotine Replacement: No Use of substances other than those prescribed or required for medical reasons: Yes Substance Use Type Other:: pt has occ. marijuana. 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 Meds Allergies Allergy/AdvReac Type Severity Reaction Status Date / Time No Known Allergies Allergy Verified 10/14/21 06:09 Home Medications Medication Instructions Recorded Confirmed Last Taken Type cholecalciferol (vitamin D3) 50 1 tab PO DAILY 11/07/20 09/20/21 Unknown History mcg (2,000 unit) tablet hydrochlorothiazide 25 mg tablet 1 tab PO DAILY 11/07/20 09/20/21 10/13/21 History Exam Airway Mallampati Class: III (Small mouth) TM Dist: >3cm Neck ROM: Full Loose/Missing/Broken Teeth: No Heart: RRR Lungs: CTA Assessment and Plan Assessment Anesthesia Assessment: Anesthesia Plan Discussed Final Anesthetic Review NPO: Yes ASA Class: II Final Preanesthetic Review: Meds/Allgs Chart Reviewed, Consent Obtained/Reviewed and Anes Risks/Benef Reviewed Patient Risk: Low Procedure Risk: Low Anesthetic Plan Anesthetic Plan: GA Disposition: Standard PACU
[2021-10-14] VITALS (8 sets, daily range): BP systolic 113–154; BP diastolic 75–99; PULSE 81–99; RESP 18–20; TEMP 36.6–36.9; O2SAT 95–98; BMI 37.4
[2021-10-14] MEDS: Lactated Ringers 1,000 ML 100 ML IVCONT (06:38)
--- NOTE | 2021-10-14 08:57 | MHC.SHP ---
Pre-Procedural Eval Section A Date of Service: 10/14/21 The patient is an INPATIENT: No Changes since office visit: Yes Patient answered all questions; No Cold of Flu in the past 2 weeks, No New Medical Problems and No Changes in Medication The History & Physical has been completed within 30 days and I have reviewed it.: Yes Section B Chief Complaint: hernia Allergies: Allergies Allergy/AdvReac Type Severity Reaction Status Date / Time No Known Allergies Allergy Verified 10/14/21 06:09 Plan Diagnosis/Plan: Unchanged I have reviewed the history and physical and performed a pertinent physical examination on my patient. No changes have occurred unless specified.
--- NOTE | 2021-10-14 08:57 | W.PM.OPN ---
Operative Note Operative Note Date of Service: 10/14/21 Narrative: Preoperative diagnosis: Umbilical hernia Postoperative diagnosis: Same Procedure: Repair of umbilical hernia with Surgeon: Rodney Hays MD Transitional Living Specialist: Gabbie Saucedo PA-C, RANI Reed Anesthesia: General LMA Indications for procedure: 36-year-old patient presenting with reducible umbilical hernia which is causing increased discomfort. Examination patient a measuring approximately 2 cm which increases with Valsalva but does reduce. Operative findings: 2.5 cm defect fascia, repaired with a 6.4 cm round Ventralex mesh. Specimen: Hernia contents, omentum Estimated blood loss: 10 mL Complications: None Procedure details: Patient was brought to the OR placed in a supine position. After administering general anesthesia the patient's abdomen was prepped with ChloraPrep and draped in a sterile fashion. A surgical time-out was called the consent confirmed. Patient received preoperative antibiotics and Venodyne boots were in place. Local anesthesia consisting of 0.5% Sensorcaine was then infiltrated around the umbilicus. Curvilinear incision was then made over the umbilicus in a transverse fashion. This carried out through subcutaneous tissue up to the hernia sac. The hernia sac was then dissected circumferentially. The contents could not be reduced therefore the sac was entered and the contents free from the peritoneal sac. Portion of herniated contents containing omentum were excised using electrocautery. This was sent as specimen. The remaining sac was then reduced into the abdominal cavity. A preperitoneal space was then dissected a combination of blunt sharp dissection. A 6.4 cm round Ventralex mesh was then obtained. This was secured at 4 corners of the fascia using 1 Tycron suture. The fascia was then closed over the mesh using [id number] 1 Tycron sutures. Approximately 5 mL of Zenrelef was then applied over the fascia. Umbilical skin was then reattached proximally to the fascia using a 3-0 Polysorb suture dermis was reapproximated using interrupted 3-0 Polysorb sutures. Skin was then closed using a running subcuticular 4-0 Polysorb suture. Steri-Strips, 2 x 2 gauze and Tegaderm were then applied. The patient tolerated the procedure well. Sponge, instrument, and needle counts reported as correct. The patient was transferred to PACU in stable condition.
[2021-10-14] MEDS: oxyCODONE HCl Immed Release 5 MG TABLET PO (09:34)
[2021-10-14] MEDS: Acetaminophen 325 MG TABLET 650 MG PO (09:35)
[2021-10-14] MEDS: fentaNYL citrate/PF 100 MCG/2 ML VIAL 25 MCG IVPUSH ×2 (09:40→09:45)
== END 2021-10-14 10:35 | disposition home or self-care (01) ==
PROVIDERS: PCP Family Medicine; Visit Provider Surgery
PROC: (CPT 49585; principal; 2021-10-14 07:30)
DX: K42.0 Umbilical hernia with obstruction, without gangrene (principal); I10 Essential (primary) hypertension; G47.33 Obstructive sleep apnea (adult) (pediatric); F41.1 Generalized anxiety disorder; Z79.1 Long term (current) use of non-steroidal anti-inflammatories (NSAID); Z79.899 Other long term (current) drug therapy; F17.210 Nicotine dependence, cigarettes, uncomplicated
CPT/HCPCS: 49585; 88302; C1781; C9088; J0690; J1100; J1885; J2250; J2405; J3010

== ENCOUNTER → 2021-11-19 09:45 | Outpatient (BNVA) | payer MEDICAID, SELFPAY | PROVIDERS: PCP Family Medicine; Visit Provider Psychiatry & Neurology Neurology | DX: G56.03 Carpal tunnel syndrome, bilateral upper limbs (principal); R20.0 Anesthesia of skin; R20.2 Paresthesia of skin; G47.10 Hypersomnia, unspecified; R06.83 Snoring | CPT/HCPCS: 99202 ==

== ENCOUNTER 2021-11-27 10:20 | Outpatient (REF) | payer MEDICAID, SELFPAY ==
--- NOTE | ~2021-11-27 | US_ITS ---
EXAMINATION: US ABDOMEN COMPLETE CLINICAL INFORMATION: Fatty liver, cholesterolosis gallbladder. COMPARISON: Ultrasound abdomen complete dated 10/04/2020. TECHNIQUE: Real-time imaging of the abdominal viscera. FINDINGS: PANCREAS: Pancreas is obscured by bowel gas. ABDOMINAL AORTA: The proximal, mid, and distal segments are normal in caliber. INFERIOR VENA CAVA: Visualized portions are normal. LIVER: There is diffusely increased hepatic echogenicity and sound attenuation consistent with diffuse hepatic steatosis. The liver is normal in size. The liver contour is normal. There is an area of focal fatty sparing adjacent the gallbladder fossa. No focal hepatic lesion. There is no intrahepatic biliary duct dilatation seen. GALLBLADDER: 6 mm immobile, nondependent gallbladder wall polyp seen. The gallbladder is physiologically distended without evidence of stones, sludge, wall thickening or pericholecystic fluid. COMMON BILE DUCT: Normal in caliber measuring 0.5 cm in diameter. RIGHT KIDNEY: Normal. No hydronephrosis. No renal calculi or focal parenchymal lesions. The kidney measures 11.2 cm in maximum dimension. LEFT KIDNEY: Normal. No hydronephrosis. No renal calculi or focal parenchymal lesions. The kidney measures 12.3 cm in maximum dimension. SPLEEN: Borderline splenomegaly, 13.4 cm in maximum dimension. FREE FLUID: None. US/US abdomen complete IMPRESSION: Sonographic appearance of the liver consistent with diffuse hepatic steatosis. There are some areas of focal fatty sparing adjacent the gallbladder fossa but no focal lesion seen. 6 mm gallbladder wall polyp. This measured 5 mm previously. There are differing management algorithms advocated for in the radiology literature for small gallbladder wall polyps of this size. Some suggest annual ultrasound follow-up while others suggest no follow-up is needed. Borderline splenomegaly.
== END 2021-11-27 10:21 | disposition home or self-care (01) ==
LOC: HO.US 10:20
PROVIDERS: PCP Family Medicine; Visit Provider Family Medicine
DX: K76.0 Fatty (change of) liver, not elsewhere classified (principal); K82.4 Cholesterolosis of gallbladder; G47.10 Hypersomnia, unspecified; R06.83 Snoring
CPT/HCPCS: 76700; 95806

== ENCOUNTER 2022-11-12 09:36 | Outpatient (REF) | payer MEDICAID, SELFPAY ==
--- NOTE | 2022-11-12 09:40 | EMG_ITS ---
Please see scanned EMG / Nerve Conduction Report. MTDD
== END 2022-11-12 09:37 | disposition home or self-care (01) ==
LOC: HO.NEURO 09:36
PROVIDERS: PCP Family Medicine; Visit Provider Family Medicine
DX: M79.641 Pain in right hand (principal); M79.642 Pain in left hand
CPT/HCPCS: 95885; 95913

== ENCOUNTER 2024-07-05 13:22 | Outpatient (REF) | payer MEDICAID, SELFPAY ==
[2024-07-05 16:43] LABS: Hematocrit 46.7 % (42.0-52.0); Hemoglobin 15.5 g/dl (14.0-18.0); Mean Corpuscular HGB Conc 33.2 g/dl (31.0-36.0); Mean Corpuscular Volume 84.3 fL (80.0-98.0); Mean Platelet Volume 11.6 fL (9.4-12.4); Platelet Count 207 X10*3/uL (160-400); Red Blood Count 5.54 X10*6/uL (4.60-5.80); Red Cell Distribution Width 12.5 % (11.0-16.0); White Blood Count 8.9 X10*3/uL (4.8-10.8)
--- OUTSIDE RECORDS SUMMARY | 2024-07-05 16:46 | XMS_ITS | Encounter Summary ---
Author Organization [employer] Address [address] [facility] [address] [place] [address] Care Team Providers Care Vault Worker Name Role Phone Jeanine Londono DO Primary Care Provider [phone] Reason for Visit * Reason Onset Date Comments Letter for School/Work 09/04/2022 Encounter Details Date Type Department Care Team ([facility] st Contact Info) Description 09/04/2022 Telephone [facility] MED & PEDS [address] [place] [address] Jeanine Londono DO [address] [place] [address] Letter for School/Work Social History Tobacco Use Types Packs/Day Years Used Date Smoking Tobacco: Some Days Cigarettes Passive Smoke Exposure: Current Smokeless Tobacco: Never Alcohol Use Standard Drinks/Week Comments Yes 0 (1 standard drink = 0.6 oz pur e alcohol) oca Sex and Gender Information Value Date Recorded Sex Assigned at Male 03/03/2022 10:15 AM EDT Legal Sex Male 10:15 AM EDT Gender Identity Male 03/03/2022 10:15 AM EDT Sexual Orientation Straight 03/03/2022 10 :15 AM EDT documented as of this encounter Miscellaneous Notes * Telephone Encounter - Carlos Pollard - 09/04/2022 11:45 AM EDT Tc from pt requesting a call back regarding DMV paper. Please contact pt at [phone] documented in this encounter Plan of Treatment Not on file documented as of this encounter Visit Diagnoses Not on filedocumented in this encounter Additional Health Concerns Assessment Noted Time PHQ-9 Depression Total Score: 0 07/25/19 23 10:20 AM EDT documented as of this encounter Care Teams Vault Worker Relationship Specialty Start Date End Date Jeanine Londono DO [address] [place] [address] PCP - General Family Medicine 05/04/18 documented as of this encounter
--- OUTSIDE RECORDS SUMMARY | 2024-07-05 16:46 | XMS_ITS | Encounter Summary ---
Author Organization [employer] Address [address] [facility] [address] [place] [address] Care Team Providers Care Resin Mixer Name Role Phone Jeanine Londono DO Primary Care Provider [phone] Reason for Visit * Reason Onset Date Comments Nurse Triage 03/16/2023 Encounter Details Date Type Department Care Team ([facility] st Contact Info) Description 03/16/2023 Telephone [facility] MEDICINE [address] [place], [place] [id number] Jeanine Londono DO [address] [place], [place] [phone] Nurse Triage Social History Tobacco Use Types Packs/Day Years Used Date Smoking Tobacco: Some Days Cigarettes Passive Smoke Exposure: Current Smokeless Tobacco: Never Alcohol Use Standard Drinks/Week Comments Yes 0 (1 standard drink = 0.6 oz pur e alcohol) oca Depression Answer Date Recorded Patient Health Questionnaire-9 Score 15 11/18/2022 Housing Stability Answer Date Recorded What is your housing situation today? I have annalise ponce 02/16/[address] you li ve. Do you have problems with any of the following? None of the above 02/16/2023 Food Insecurity Answer Date Recorded Within the past 12 months, y ou worried that your food would run out before you got money to buy more: Never True 02/16/2023 Within the past 12 months,th e food you bought just didn't last and you didn't have enough money to get more: Never True Transportation Answer Date Recorded In the past 12 months, has l ack of transportation kept you from medical appts, meetings, work or from getting things needed for daily living? No 02/16/2023 Utilities Answer Date Recorded In the past 12 months, has t he electric, gas, oil or water company threatened to shut off services in your home? No 02/16/2023 Depression Answer Date Recorded Patient Health Questionnaire-2 Score 6 11/18/2022 Sex and Gender Information Value Date Recorded Sex Assigned at Male 03/03/2022 10:15 AM EDT Legal Sex Male 10:15 AM EDT Gender Identity Male 03/03/2022 10:15 AM EDT Sexual Orientation Straight 03/03/2022 10 :15 AM EDT documented as of this encounter Miscellaneous Notes * Telephone Encounter - Keya Paniagua RN - 03/16/2023 2:44 PM EST Triage call Pt reports found tick on the back of right thigh yesterday. Pt is unable to see area, Pt pulled the tick out (didn't save it) and friend cleaned the area and applied antibiotic ointment. Pt reports area is painful, reddened and is not sure if there is a bullseye ring. Pt is advised to come to [facility] today, opened till 8pm. Pt agrees with disposition and home care reviewed. Protocol Used: Tick Bite (Adult) Protocol-Based Disposition: See in Office or Video Visit Today Positive Triage Question: * Red or very tender (to touch) area and started over 24 hours after the bite * All higher-acuity triage questions were negative Care Advice Discussed: * Reassurance and Education - Bite From Unknown Type of Tick * How to Remove a Tick? * Tick's Head Removal * Antibiotic Ointment * Expected Course * Reasons To Call Back - Fever or rash occur in the next 4 weeks - Bite begins to look infected - You become worse * Telephone Encounter - Bola Shoemaker - 03/16/2023 2:10 PM EST Symptom: Tick Bite Outcome: Schedule an urgent appointment (within 4 hours) or talk to a nurse or provider soon Reason: Bull's eye rash around the tick bite The caller accepted this outcome Please contact pt at [phone] documented in this encounter Plan of Treatment Not on file documented as of this encounter Visit Diagnoses Not on filedocumented in this encounter Additional Health Concerns Assessment Noted Time PHQ-9 Depression Total Score: 15 023 11:24 AM EDT documented as of this encounter Care Teams Resin Mixer Relationship Specialty Start Date End Date Jeanine Londono DO [address] [place] [address] PCP - General Family Medicine 05/04/18 documented as of this encounter
--- OUTSIDE RECORDS SUMMARY | 2024-07-05 16:46 | XMS_ITS | Clinical Summary ---
Author Organization [employer] Address [address] [facility] [address] [place] [address] Care Team Providers Care Discount Clerk Name Role Phone Jeanine Londono Primary Care Provider [phone] Allergies No known active allergies Medications * This document contains information received from the source organization and may not represent a complete record from that organization. Diclofenac Sodium 1 % gel Apply 2 g topically if needed in the morning, at noon, in the evening, and at bedtime (pain). 150 g 3 07/06/19 25 Active hydroCHLOROthi azide (HYDRODiuril) 25 MG tablet Take 1 tablet (25 mg) by mouth Once per day. 90 tablet 3 07/06/19 026 Active acetaminophen (Tylenol 8 Hour) 650 MG ER tablet Take 1 tablet (650 mg) by mouth every 8 (eight) hours if needed for mild pain. Do not crush, chew, or split. 40 tablet 1 07/06/19 25 025 Active Mometasone Furoate (Asmanex HFA) 100 MCG/ACT aerosol Inhale 1 Act (100 mcg) 2 times daily. 60 Act 11 07/06/19 25 026 Active albuterol 108 (90 Base) MCG/ACT inhaler Inhale 2 puffs every 4 (four) hours if needed for wheezing or shortness of breath. 18 g 1 07/06/19 25 026 Active methocarbamol (Robaxin) 750 MG tablet Take 1 tablet (750 mg) by mouth if needed in the morning, at noon, and at bedtime for muscle spasms. 60 tablet 1 07/06/19 25 026 Active naproxen (Naprosyn) 500 MG tablet Take 1 tablet (500 mg) by mouth if needed in the morning and at bedtime for mild pain. 30 tablet 1 07/06/19 25 026 Active Skin Protectants, Misc. (eucerin) cream Apply topically if needed for wound care. 396 g 3 07/06/19 25 026 Active Blood Pressure kit 1 each 1 (one) time per week. 1 kit 07/06/19 25 Active Tirzepatide-We ight Management (Zepbound) 2.5 MG/0.5ML solution auto-injector Inject 0.5 mL (2.5 mg) under the skin 1 (one) time per week. 2 mL 3 07/06/19 25 Active hydroCHLOROthi azide (HYDRODiuril) 25 MG tablet Take 1 tablet (25 mg) by mouth in the morning. 90 tablet 3 07/25/19 23 025 Discontinued(Re order (will not trigger notification to Pharmacy)) Diclofenac Sodium 1 % gel Apply 2 g topically if needed in the morning and at bedtime (pain). 150 g 3 07/25/19 23 025 Discontinued(Re order (will not trigger notification to Pharmacy)) gabapentin (Neurontin) 400 MG capsule Take 1 capsule (400 mg) by mouth 3 times daily. 90 capsule 3 11/19/19 23 025 Discontinued cholecalcifero l (Vitamin D-3) 1.25 MG (82617 UT) capsule TAKE 1 CAPSULE BY MOUTH ONCE A WEEK 12 capsule 02/27/20 23 025 Discontinued Active Problems Problem Noted Date Diagnosed Date Anxiety 08/03/2023 Major depression 11/18/2022 Assessment & Plan (11/19/2022 10:15 AM EDT): Assessment: Patient with anhedonia, depressed mood, trouble falling asleep/sleep too much, feeling anxious, restlessness and overeating. He denies SI/HI. Presentation in the context of trauma, marital issues, financial instability, and homelessness. Patient will benefit from OP therapy referral. At this time Nilson Stubbs meets criteria for Visit Diagnoses: Problem List Items Addressed This Visit Other Posttraumatic stress disorder Major depression Patient ready to address current needs Yes Strengths include motivation to seek service PLAN: 1. Follow up with C: Not recommended for follow-up 2. Patient goal is to be connected with a therapist 3. Behavioral Recommendations a. Patient will engage in therapy, once service has been established b. Patient may request to speaking with a [facility] during next PCP visit, if needed Gallbladder polyp 07/22/2016 Fatty liver 07/22/2016 Obstructive sleep apnea 04/30/2016 Essential hypertension 03/20/2016 Chronic low back pain 03/15/2015 Elevated fasting glucose 03/15/2015 Mild intermittent asthma 03/15/2015 Posttraumatic stress disorder 03/15/2015 Vitamin D deficiency 03/15/2015 Encounters Date Type Department Care Team Description 07/05/2024 12:00 PM EST Office Visit [facility] [address] [place] [id number] Jeanine Londono DO Essential hypertension (Primary Dx); Fatty liver; Gallbladder polyp; Chronic bilateral low back pain without sciatica; Dyspnea on exertion; Obstructive sleep apnea; Healthcare maintenance; BMI 40.0-44.9, adult ([facility]); Encounter for immunization 07/05/2024 Travel 07/01/2024 Telephone [facility] [address] [place] [address] Jeanine Londono DO Nurse Triage 04/18/2024 Telephone [facility] [address] [place] [address] Jeanine Londono DO No Show from Last 3 Months Immunizations Name Administration Dates Next Due DTaP 10/02/1992, 0,09/22/1988,07/09,01/14/1988 Hep A, Adult 04/08/2018,05/25/2017 Hep B, Adolescent or Pediatric 01/12/1996,1995,07/31/1995 Hib (HbOC) 02/11/1989 IPV 10/02/1992, 9,07/09/1988,01/13 Influenza injectable quadriv alent IIV4 with preservative 05/25/2017,03/20/2016,03/15/2015 Influenza injectable quadriv alent preservative free 04/01/2023,07/24/2022,03/26/2021,04/08,06/09/2014 Influenza, IIV3, injectable 04/14/2003 Influenza, Split (incl. bony fied surface antigen) 05/14/2012 Influenza, seasonal, injecta ble, preservative free 07/05/2024 MMR 05/09/1999,12/18/1988 Pfizer Covid-19 Vaccine 12+ Bivalent 07/24/2022 Pneumococcal Polysaccharide PPSV23 03/15/2015 TD (adult), 2 Lf tetanus tox oid, preservative free, adsorbed 11/15/2007,08/09/1997 Tdap 06/09/2014 Family History Medical History Relation Name Comments Diabetes Father Hypertension Father Alcohol abuse Mother Diabetes Mother Hyperlipidemia Mother Hypertension Mother Relation Name Status Comments Father Mother Social History Tobacco Use Types Packs/Day Years Used Date Smoking Tobacco: Some Days Cigarettes Passive Smoke Exposure: Current Smokeless Tobacco: Never Tobacco Cessation:Ready to Q uit: Not Asked; Counseling Given: Not Answered Alcohol Use Standard Drinks/Week Comments Yes 0 [...] Orientation Straight 03/03/2022 10 :15 AM EDT Last Filed Vital Signs Vital Sign Reading Time Taken Comments Blood Pressure 140/100 07/05/2024 1:19 PM EST Pulse 91 07/05/2024 12:40 PM EST Temperature 36.8 ??C (98.2 ??F) 07/05/2024 12:[address] Respiratory Rate 17 07/05/2024 12:40 PM EST Oxygen Saturation 98% 07/05/2024 12:40 PM EST Inhaled Oxygen Concentration - - Weight 113 kg (249 lb) 07/05/2024 12:40 PM EST Height 167.6 cm (5' 6 ) 07/05/2024 12:40 PM EST Body Mass Index 40.19 07/05/2024 12:40 PM EST Plan of Treatment Health Maintenance Due Date Last Done Comments Dental Prophylaxis 1987 Alcohol/Substance Use Screening 1999 Family Planning (PISQ) 08/21/2002 Dental Oral Exam 04/13/2009 10/11/2008 Dental X-Ray: Bitewings 10/12/2009 10/11/2008, 03/14 Dental X-Ray: Full Mouth 03/15/2011 03/14/2008 Pneumococcal Vaccine: Pediatrics (0 to 5 Years) and At-Risk Patients (6 to 49) Years) (2 of 2 - PCV) 03/15/2016 03/15/2015 Depression Monitoring (PHQ-9) 05/21/2023 11/18/2022, 11/18/2022 SDOH Screening 07/25/2023 07/24/2022 Depression Screening 11/19/2023 11/18/2022, 11/19/19 COVID-19 Vaccine ( - season) 2024 07/24/2022, 07/16/2021, 05/21/2021 DTaP/Tdap/Td Vaccines (7 - Td or Tdap) 06/09/2024 06/09/2014, 11/15/2007, 08/09/1997, Additional history exists Tobacco Screening 07/05/2025 07/05/2024 Lipid Panel 07/25/2027 07/24/2022, 12/10/2020 Zoster Vaccines (1 of 2) 08/21/2037 RSV Patients and Patients Aged 60 years or older (1 - 1-dose 75+ series) 08/21/2062 HIB Vaccines Completed 02/11/1989 IPV Vaccines Completed 10/02/1992, 09/02, 07/09/1988, Additional history exists Hepatitis B Vaccines Completed 01/12/1996, 08/31/1995, 07/31/1995 Hepatitis A Vaccines Completed 04/08/2018, 05/25/19 18 HIV Screening Completed 07/24/2022, 12/10/2020 Hepatitis C Screening Completed 07/24/2022, 021 Influenza Vaccine Completed 07/05/2024, , 07/24/2022, Additional history exists HPV Vaccines Aged Out No longer eligi ble based on patient's age to complete this topic Meningococcal Vaccine Aged Out No pa kathy eligible based on patient's age to complete this topic RSV under 20 months Aged Out No longe r eligible based on patient's age to complete this topic Rotavirus Vaccines Aged Out No longer eligible based on patient's age to complete this topic Procedures Procedure Name Priority Date/Time Associated Diagnosis Comments CBC Routine 07/05/2024 1:29 PM EST Essential hypertension Fatty liver Gallbladder polyp HEPATITIS C AB W/REFL TO HCV RNA, QN, PCR Routine 07/24/2022 11:37 AM EDT HIV 1/2 ANTIGEN/ANTIBODY, FOURTH GENERATION W/RFL Routine 07/24/2022 11:37 AM EDT LIPID PANEL, STANDARD Routine 07/24/2022 11:37 AM EDT BITEWINGS - 4 RADIOGRAPHIC IMAGES Routine 10/11/2008 12:00 AM EDT COMPREHENSIVE ORAL EVALUATION - NEW OR ESTABLISHED PATIENT Routine 10/11/2008 12:00 AM EDT INTRAORAL - COMPLETE SERIES OF RADIOGRAPHIC IMAGES Routine 03/14/2008 12:00 AM EST from Last 3 Months or Most Recently Relevant to Health Maintenance Results * CBC (07/05/2024 1:29 PM EST) White Blood Count 8.9 4.8 - 10.8 X10*3/uL [facility] Red Blood Count 5.54 4.60 - 5.80 X10*6/uL [facility] Hemoglobin 15.5 14.0 - 18.0 g/dl [facility] Hematocrit 46.7 42.0 - 52.0 % [facility] Mean Corpuscular Volume 84.3 80.0 - 98.0 fL [facility] Mean Corpuscular Hemoglobin 28.0 27.0 - 33.0 pg [facility] Mean Corpuscular HGB Conc 33.2 31.0 - 36.0 g/dl [facility] Red Cell Distribution Width 12.5 11.0 - 16.0 % [facility] Platelet Count 207 160 - 400 X10*3/uL [facility] Mean Platelet Volume 11.6 9.4 - 12.4 fL [facility] NRBC Pct Auto 0.0 0.0 - 0.2 /100WBC [facility] NRBC Abs Auto 0.000 0.0 - 0.012 X10*3/uL [facility] Blood Venous blood specimen / Unknown 07/05/2024 1:29 PM EST 07/05/2024 4:06 PM EST us Jeanine Londono DO LAB BLOOD ORDERABLES Final R esult [facility] [address] [place] [phone] * Hepatitis C Antibody with Reflex to HCV, RNA, Quantitative, Real-Time PCR (07/24/2022 11:37 AM EDT) Hepatitis C Antibody NON-REACT MARGARITO NON-REACT MARGARITO [employer] Index 0.03 <1.00 [employer] Comment: HCV antibody was non-reactive. There is no laboratory evidence of HCV infection. In most cases, no further action is required. However, if recent HCV exposure is suspected, a test for HCV RNA (test code 80735) is suggested. For additional information please refer to http://education.Outside.in/faq/EKT41e8 (This link is being provided for informational/ educational purposes only.) 07/24/2022 11:3 7 AM EDT 07/24/2022 11:38 AM EDT Narrative [facility] - 07/25/2022 6:24 PM EDT FASTING:YES FASTING: YES Jeanine Londono DO LAB BLOOD ORDERABLES Final R esult Performing Organization Address City/[facility]/ZIP Co de Phone Number [facility] [address], [place] [address] [employer] [facility] [address] [place] [address] * HIV-1/2 Antigen and Antibodies, Fourth Generation, with Reflexes (07/24/2022 11:37 AM EDT) Pathologist [facility] HIV Antigen/Antibody, 4th Generation NON-REAC TIVE NON-REAC TIVE [employer] [facility] Comment: HIV-1 antigen and HIV-1/HIV-2 antibodies were not detected. There is no laboratory evidence of HIV infection. PLEASE NOTE: This information has been disclosed to you from records whose confidentiality may be protected by state law. ??If your state requires such protection, then the state law prohibits you from making any further disclosure of the information without the specific written consent of the person to whom it pertains, or as otherwise permitted by law. A general authorization for the release of medical or other information is NOT sufficient for this purpose. ?? For additional information please refer to http://education.Yhat.Next Generation Systems/faq/ZGM400 (This link is being provided for informational/ educational purposes only.) The performance of this assay has not been clinically validated in patients less than 2 years old. 07/24/2022 11:3 7 AM EDT 07/24/2022 11:38 AM EDT Narrative [facility] - 07/25/2022 6:24 PM EDT FASTING:YES FASTING: YES Jeanine Londono DO LAB BLOOD ORDERABLES Final R esult [facility] [address], [place] [address] [employer] [facility] [address] [place] [address] * (ABNORMAL) Lipid Panel, Standard (07/24/2022 11:37 AM EDT) Cholesterol, Total 213(H) <200 mg/dL [facility] [employer] [place] [address] [facility] HDL Cholesterol 37(L) > OR = 40 mg/dL [employer] [place] [facility] Triglycerides 454(H) <150 mg/dL [employer] [place] [facility] Comment: If a non-fasting specimen was collected, consider repeat triglyceride testing on a fasting specimen if clinically indicated. Mona et al. J. of Clin. Lipidol. 2015;9:129-169. LDL Cholesterol Ques [employer] [place] [employer] Comment: LDL cholesterol not calculated. Triglyceride levels greater than 400 mg/dL invalidate calculated LDL results. Reference range: <100 Desirable range <100 mg/dL for primary prevention; ?? <70 mg/dL for patients with CHD or diabetic patients with > or = 2 CHD risk factors. LDL-C is now calculated using the Дмитрий-Jossie calculation, which is a validated novel method providing better accuracy than the Friedewald equation in the estimation of LDL-C. Дмитрий SS et al. MAYELA. 2013;310(19): 8176-1567 (http://education.Blownaway/faq/VGW057) Chol/HDLC Ratio 5.8(H) <5.0 (calc) [employer] [place] [facility] Non-HDL Cholesterol 176(H) <130 mg/dL (calc) [employer] [place] [facility] Comment: For patients with diabetes plus 1 major ASCVD risk factor, treating to a non-HDL-C goal of <100 mg/dL (LDL-C of <70 mg/dL) is considered a therapeutic option. 07/24/2022 11:3 7 AM EDT 07/24/2022 11:38 AM EDT Narrative [facility] - 07/25/2022 6:24 PM EDT FASTING:YES FASTING: YES Jeanine Londono DO LAB BLOOD ORDERABLES Final R esult [facility] [address] [facility], [place] [address] [facility] [place] [facility] [address] [place] [address] from Last 3 Months or Most Recently Relevant to Health Maintenance Insurance [facility] C3 HSN FULL DENTAL-[facility] MEDICAID STAND ADULT Care Teams Discount Clerk Relationship Specialty Start Date End Date Jeanine Londono DO [address] [place] [phone] PCP - General Family Medicine 05/04/18
--- OUTSIDE RECORDS SUMMARY | 2024-07-05 16:46 | XMS_ITS | Encounter Summary ---
Author Organization [employer] [facility] Address [address] [facility] [address] [place] [address] Care Team Providers Care Mixer Operator Helper Hot Metal Name Role Phone Jeanine Londono DO Primary Care Provider Reason for Visit * Reason Onset Date Comments Nurse Triage 07/01/2024 Encounter Details Date Type Department Care Team ([facility] st Contact Info) Description 07/01/2024 Telephone [facility] [address] [place], [place] [phone] Jeanine Londono DO [address] [place], [place] [phone] Nurse Triage Social History Tobacco Use Types [...] encounter Miscellaneous Notes * Telephone Encounter - Karin Martinez RN - 07/04/2024 8:37 AM EST Called pt. RE: TC note from 07/01/24 with low back pain and that I would call him back when allowed to book a slot with PCP. Appt. Booked for 07/05/24 at 12 noon pm. * Telephone Encounter - Karin Martinez RN - 07/01/2024 1:21 PM EST Called pt. He states that he has been having back pain and not sleeping well. Pt. Tried to get up from the couch and he wrenched his back. Pt states that when he tries to push his clutch in his car with his left foot he gets left lower sided back pain. Pt. States that his friend gave him a Methocarbamol 750mg pill and it did give him some relief but, he does not want to take any medications from his friend. Pt. 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 Advised pt. That he can be seen in walk in and hours provided for todayand tomorrow. Pt. Wishes for me to keep his note in my in basket to check if PCP has available sloton 07/05/24 that is currently blocked. Will keep pt. Note in my in basket. Protocol Used: Back Pain (Adult) Protocol-Based Disposition: See in Office or Video Visit within 3 Days Video visit offer not recorded Positive Triage Questions: * Moderate back pain (e.g., interferes with normal activities) and present > 3 days * Pain radiates into the thigh or further down the leg * Patient wants to be seen * All higher-acuity triage questions were negative Care Advice Discussed: * Cold or Heat * Sleep * Continue Activity * Pain Medicines * Telephone Encounter - Danny Ellsworth - 07/01/2024 1:05 PM EST Symptom: Back Pain - Not From Injury Outcome: Talk to a nurse or provider within 15 minutes Reason: Can't walk (unless normally can't walk) The caller accepted this outcome. documented in this encounter Plan of Treatment Not on file documented as of this encounter Visit Diagnoses Not on filedocumented in this encounter Additional Health Concerns Assessment Noted Time PHQ-9 Depression Total Score: 15 023 11:24 AM EDT documented as of this encounter Care Teams Mixer Operator Helper Hot Metal Relationship Specialty Start Date End Date Jeanine Londono DO [address] [place] [phone] PCP - General Family Medicine 05/04/18 documented as of this encounter
--- OUTSIDE RECORDS SUMMARY | 2024-07-05 16:46 | XMS_ITS | Encounter Summary ---
Author Organization [employer] Address [address] [facility] [address] [place] [address] Care Team Providers Care English Drawer Name Role Phone Jeanine Londono DO Primary Care Provider Encounter Details Date Type Department Care Team (Latest Contact Info) Description 07/05/2024 Travel Social History Tobacco Use Types Packs/Day Years Used Date Smoking Tobacco: Some Days Cigarettes Passive Smoke Exposure: Current Smokeless Tobacco: Never Alcohol Use Standard Drinks/Week Comments Yes 0 (1 standard drink = 0.6 oz pur e alcohol) oca Depression Answer Date Recorded Patient Health Questionnaire-9 Score 15 11/18/2022 Housing Stability Answer Date Recorded What is your housing situation today? I have annaliseafshin ponce 02/16/[address] you [...] AM EDT documented as of this encounter Plan of Treatment Not on file documented as of this encounter Visit Diagnoses Not on filedocumented in this encounter Additional Health Concerns Assessment Noted Time PHQ-9 Depression Total Score: 15 023 11:24 AM EDT documented as of this encounter Care Teams English Drawer Relationship Specialty Start Date End Date Jeanine Londono DO [address] [place] [phone] PCP - General Family Medicine 05/04/18 documented as of this encounter
--- OUTSIDE RECORDS SUMMARY | 2024-07-05 16:46 | XMS_ITS | Encounter Summary ---
Author Organization [employer] Address [address] [place] [address] 7 [place] [address] Care Team Providers Care Electronic Lab Technician Name Role Phone Jeanine Londono DO Primary Care Provider Reason for Referral * Imaging (Routine) - Authorized Specialty Diagnoses / Procedures Referred By Frieda vazquez Referred To Contact Radiology Diagnoses Fatty liver Gallbladder polyp Procedures US Abdomen Complete Jeanine Londono DO [address] [place] [address] Phone: tel: fax: [address] Phone: tel: fax: Referral ID Status Reason Start Date Expiration Date V isits Requested Visits Authorized [id number] Authorized 07/05/2024 07/05/2025 1 1 * Hospital - Outpatient (Routine) - Authorized Specialty Diagnoses / Procedures Referred By Frieda vazquez Referred To Contact Diagnoses Obstructive sleep apnea Procedures Polysomnography Jeanine Londono DO [address] [place] [address] Phone: tel: fax: [address] Phone: tel: fax: Referral ID Status Reason Start Date Expiration Date V isits Requested Visits Authorized [id number] Authorized 07/05/2024 07/05/2025 1 1 * Consultation (Routine) - Pending Review Specialty Diagnoses / Procedures Referred By Contac t Referred To Contact Physical Therapy Diagnoses Chronic bilateral low back pain without sciatica Jeanine Londono DO [address] [place] [address] Phone: tel: fax: Referral ID Status Reason Start Date Expiration Date Visits Requested Visits Authorized [id number] Pending Review Specialty Services Required 07/05/2024 07/05/2025 1 1 * PFT (Routine) - Authorized Specialty Diagnoses / Procedures Referred By Frieda vazquez Referred To Contact Diagnoses Dyspnea on exertion Procedures Pulmonary Function Test Jeanine Londono DO [address] [place] [address] Phone: tel: fax: [address] Phone: tel: fax: Referral ID Status Reason Start Date Expiration Date V isits Requested Visits Authorized [id number] Authorized 07/05/2024 07/05/2025 1 1 Reason for Visit * Reason Comments Back Pain Encounter Details Date Type Department Care Team (Late st Contact Info) Description 07/05/2024 12:00 PM EST Office Visit [facility] [address] [place] [id number] Jeanine Londono DO [address] [place] [phone] Essential hypertension (Primary Dx); Fatty liver; Gallbladder polyp; Chronic bilateral low back pain without sciatica; Dyspnea on exertion; Obstructive sleep apnea; Healthcare maintenance; BMI 40.0-44.9, adult (CMS/HCC); Encounter for immunization Social History Tobacco Use Types Packs/Day Years [...] AM EDT documented as of this encounter Last Filed Vital Signs Vital Sign Reading [...] Mass Index 40.19 07/05/2024 12:40 PM EST documented in this encounter Plan of Treatment Scheduled Orders Name Type Priority Associated Diagnoses Orde r Schedule T4, Free Lab Routine Essential hypertension Fatty liver Gallbladder polyp Expected: 07/05/2024 (Approximate), Expires: 07/05/2025 Vitamin D, 25-Hydroxy, Total, Immunoassay Lab Routine Essential hypertension Fatty liver Gallbladder polyp Expected: 07/05/2024 (Approximate), Expires: 07/05/2025 Lipid Panel, Standard Lab Routine Essential hypertension Fatty liver Gallbladder polyp Expected: 07/05/2024 (Approximate), Expires: 07/05/2025 TSH Lab Routine Essential hypertension Fatty liver Gallbladder polyp Expected: 07/05/2024 (Approximate), Expires: 07/05/2025 Hepatic Function Panel Lab Routine Essential hypertension Fatty liver Gallbladder polyp Expected: 07/05/2024 (Approximate), Expires: 07/05/2025 Hemoglobin A1c Lab Routine Essential hypertension Fatty liver Gallbladder polyp Expected: 07/05/2024 (Approximate), Expires: 07/05/2025 Basic Metabolic Panel Lab Routine Essential hypertension Fatty liver Gallbladder polyp Expected: 07/05/2024 (Approximate), Expires: 07/05/2025 Albumin, Random Urine W/Creatinine Lab Routine Essential hypertension Fatty liver Gallbladder polyp Expected: 07/05/2024 (Approximate), Expires: 07/05/2025 Hepatitis B surface antigen, EIA Lab Routine Essential hypertension Fatty liver Gallbladder polyp Expected: 07/05/2024 (Approximate), Expires: 07/05/2025 Chlamydia/N. Gonorrhoeae RNA, TMA, Urogenitial Microbiology Routine Essential hypertension Fatty liver Gallbladder polyp Ordered: 07/05/2024 HIV-1/2 Antigen and Antibodies, Fourth Generation, with Reflexes Lab Routine Essential hypertension Fatty liver Gallbladder polyp Expected: 07/05/2024 (Approximate), Expires: 07/05/2025 Hepatitis C Antibody with Reflex to HCV, RNA, Quantitative, Real-Time PCR Lab Routine Essential hypertension Fatty liver Gallbladder polyp Expected: 07/05/2024, Expires: 07/05/2025 RPR (Monitor) with Reflex to??Titer Lab Routine Essential hypertension Fatty liver Gallbladder polyp Expected: 07/05/2024, Expires: 07/05/2025 Hepatitis B Surface Antibody, Qualitative Lab Routine Essential hypertension Fatty liver Gallbladder polyp Expected: 07/05/2024 (Approximate), Expires: 07/05/2025 Hepatitis A Antibody, Total Lab Routine Essential hypertension Fatty liver Gallbladder polyp Expected: 07/05/2024 (Approximate), Expires: 07/05/2025 Hepatitis B Core Antibody, Total Lab Routine Essential hypertension Fatty liver Gallbladder polyp Expected: 07/05/2024 (Approximate), Expires: 07/05/2025 Alpha-Fetoprotein, Tumor Marker Lab Routine Essential hypertension Fatty liver Gallbladder polyp Expected: 07/05/2024 (Approximate), Expires: 07/05/2025 Pulmonary Function Test PFT Routine Dyspnea on exertion Expected: 07/05/2024, Expires: 01/05/2025 [facility]ysomnography [facility] Routine Obstructive sleep apnea Expected: 07/05/2024 (Approximate), Expires: 07/05/2025 US Abdomen Complete Imaging Routine Fatty liver Gallbladder polyp Expected: 07/05/2024, Expires: 07/05/2025 Scheduled Referrals Name Type Priority Associated Diagnoses Orde r Schedule Referral to Physical Therapy Outpatient Referral Routine Chronic bilateral low back pain without sciatica Expected: 07/05/2024 (Approximate), Expires: 07/05/2025 documented as of this encounter Procedures Procedure Name Priority Date/Time Associated Diagnosis Comments CBC Routine 07/05/2024 1:29 PM EST Essential hypertension Fatty liver Gallbladder polyp documented in this encounter Results * CBC (07/05/2024 1:29 PM EST) White Blood Count 8.9 4.8 - 10.8 X10*3/uL [facility] Red Blood Count 5.54 4.60 - 5.80 X10*6/uL [facility] Hemoglobin 15.5 14.0 - 18.0 g/dl [facility] Hematocrit 46.7 42.0 - 52.0 % [facility] Mean Corpuscular Volume 84.3 80.0 - 98.0 fL [facility] Mean Corpuscular Hemoglobin 28.0 27.0 - 33.0 pg [facility] Mean Corpuscular HGB Conc 33.2 31.0 - 36.0 g/dl [facility] Red Cell Distribution Width 12.5 11.0 - 16.0 % [facility] Platelet Count 207 160 - 400 X10*3/uL [facility] Mean Platelet Volume 11.6 9.4 - 12.4 fL [facility] NRBC Pct Auto 0.0 0.0 - 0.2 /100WBC [facility] NRBC Abs Auto 0.000 0.0 - 0.012 X10*3/uL [facility] Blood Venous blood specimen / Unknown 07/05/2024 1:29 PM EST 07/05/2024 4:06 PM EST us Jeanine Londono DO LAB BLOOD ORDERABLES Final R esult [facility] [address] [place] [address] [phone] documented in this encounter Visit Diagnoses Diagnosis Essential hypertension- Primary Unspecified essential hypertension Fatty liver Other chronic nonalcoholic liver disease Gallbladder polyp Cholesterolosis of gallbladder Chronic bilateral low back pain without sciatica Dyspnea on exertion Other dyspnea and respiratory abnormality Obstructive sleep apnea Obstructive sleep apnea (adult) (pediatric) Healthcare maintenance BMI 40.0-44.9, adult ([facility]) Encounter for immunization documented in this encounter Additional Health Concerns Assessment Noted Time PHQ-9 Depression Total Score: 15 023 11:24 AM EDT documented as of this encounter Care Teams Electronic Lab Technician Relationship Specialty Start Date End Date Jeanine Londono DO [address] [place] [phone] PCP - General Family Medicine 05/04/18 documented as of this encounter
[2024-07-05 16:57] LABS: Alanine Aminotransferase 53 U/L (0-40); Albumin Level 4.3 g/dL (3.5-5.0); Anion Gap 11 (12-20); Aspartate Amino Transferase 28 U/L (5-37); Bilirubin Direct 0.2 mg/dL (0.0-0.5); Bilirubin Total 0.5 mg/dL (0.0-1.0); Blood Urea Nitrogen 13 mg/dL (9-16); Calcium 9.4 mg/dL (8.4-10.2); Carbon Dioxide 26 mmol/L (22-29); Chloride 104 mmol/L (96-108); Cholesterol 184 mg/dL (<200); Estimated Average Glucose 111 mg/dL; Estimated Glomerular Filt Rate > 60; Glucose Random 103 mg/dL (60-115); HDL Cholesterol 38 mg/dL (>40); Hemoglobin A1C 147.2819 umol/L; Hemoglobin A1c % 5.5 % (<6.0); LDL Cholesterol Calculated 108 mg/dL (<100); Potassium 4.2 mmol/L (3.3-5.1); Sodium 137 mmol/L (135-145); Total Hemoglobin (HGBA1C) 4028.1147 umol/L; Total Protein 7.7 g/dL (6.5-8.0); Triglycerides 192 mg/dL (<150)
[2024-07-05 17:06] LABS: Free T4 (Free Thyroxine) 0.82 ng/dL (0.71-1.85); Thyroid Stimulating Hormone 1.57 uIU/mL (0.32-4.0); Vitamin D 25-OH Total 14.8 ng/mL (>30)
[2024-07-05 17:13] LABS: Creatinine Urine 402.85 mg/dL; Microalbum/Creatinine Ratio Ur 6.9 ug/mg cr (<30)
[2024-07-05 17:43] LABS: Alkaline Phosphatase 74 U/L (39-117)
[2024-07-06 08:13] LABS: Hepatitis A Antibody IgG REACTIVE (Nonreactive); ~Hepatitis A Antibody IgG 8.94 S/CO (0.00-0.99)
[2024-07-06 08:20] LABS: HBS Num1 32.21 mIU/mL (0-7.99); HBc Num1 0.08 S/CO (0.00-0.79); HBsAGNum1 0.33 S/CO (0.00-0.99); HIV AB/AG Nonreactive (Nonreactive); HIV Num 1 0.05 S/CO (0.00-0.99); Hepatitis B Core Antibody Nonreactive (Nonreactive); Hepatitis B Surface Antigen Negative (Negative); ~HepC Num1 0.13 S/CO (0.00-0.79); ~Hepatitis B Surface Antibody REACTIVE (Nonreactive); ~Hepatitis C Antibody Nonreactive (Nonreactive)
[2024-07-06 12:31] LABS: CT PCR NOT DETECTED (Not Detect.); NG PCR NOT DETECTED (Not Detect.)
[2024-07-07 11:58] LABS: RPR Rapid Plasma Reagin NON-REACTIVE (NON-REACTIVE)
== END 2024-07-05 13:23 | disposition home or self-care (01) ==
LOC: HO.HHCL 13:22
PROVIDERS: Visit Provider Family Medicine
DX: I10 Essential (primary) hypertension (principal); K76.0 Fatty (change of) liver, not elsewhere classified; K82.4 Cholesterolosis of gallbladder
CPT/HCPCS: 80048; 80061; 80076; 82043; 82105; 82306; 82570; 83036; 84439; 84443; 85027; 86592; 86704; 86706; 86708; 86803; 87340; 87389; 87491; 87591

== ENCOUNTER 2024-08-15 23:00 | Emergency (ER) | payer MEDICAID, SELFPAY ==
[2024-08-15 23:18] VITALS: BP 137/79; PULSE 98; RESP 18; TEMP 36.8; O2SAT 95; BMI 38.7
--- OUTSIDE RECORDS SUMMARY | 2024-08-16 04:09 | XMS_ITS | Encounter Summary ---
Author Organization [employer] Address [address] [place] [address] 7[address] [place] [address] Care Team Providers Care Steam Pipe Fitter Name Role Phone Jeanine Londono DO Primary Care Provider Reason for Visit * Reason Onset Date Comments Letter for School/Work 09/04/2022 Encounter Details Date Type Department Care Team (Late st Contact Info) Description 09/04/[address] [facility] [address] [place] [address] Jeanine Londono DO [address] [place] [phone] Letter for School/Work Social History Tobacco Use [...] regarding DMV paper. Please contact pt at [phone] documented in this encounter Plan of Treatment Upcoming Encounters Date Type Department Care Team (Late Contact Info) Description 09/23/2024 9:15 AM EDT Telemedicine [facility] [address] [place] [address] Jeanine Londono DO [address] [place] [address] documented as of this encounter Visit Diagnoses Not on filedocumented in this encounter Additional Health Concerns Assessment Noted Time PHQ-9 Depression Total Score: 0 07/25/19 23 10:20 AM EDT documented as of this encounter Care Teams Steam Pipe Fitter Relationship Specialty Start Date End Date Jeanine Londono DO [address] [place] [address] PCP - General Family Medicine 05/04/18 documented as of this encounter
--- OUTSIDE RECORDS SUMMARY | 2024-08-16 04:09 | XMS_ITS | Encounter Summary ---
Author Organization [employer] Address [address] [facility] 7t [place] [address] Care Team Providers Care Educational Manager Name Role Phone Jeanine Londono DO Primary Care Provider [phone] Reason for Visit * Reason Onset Date Comments Nurse Triage 03/16/2023 Encounter Details Date Type Department Care Team ([facility] st Contact Info) Description 03/16/2023 Telephone [facility] [address] [place] [address] Jeanine Londono DO [address] [place] [address] Nurse Triage Social History Tobacco Use Types [...] ring. Pt is advised to come to [facility] today, opened till 8pm. Pt agrees with [...] accepted this outcome Please contact pt at [phone] documented in this encounter Plan of Treatment Upcoming Encounters Date Type Department Care Team (Late st Contact Info) Description 09/23/2024 9:15 AM EDT Telemedicine [facility] [address] [place] [address] Jeanine Londono DO [address] [place] [address] documented as of this encounter Visit Diagnoses Not on filedocumented in this encounter Additional Health Concerns Assessment Noted Time PHQ-9 Depression Total Score: 15 023 11:24 AM EDT documented as of this encounter Care Teams Educational Manager Relationship Specialty Start Date End Date Jeanine Londono DO [address] [place] [address] PCP - General Family Medicine 05/04/18 documented as of this encounter
[2024-08-16 05:57] VITALS: BP 138/82; PULSE 98; RESP 18; TEMP 36.9; O2SAT 96
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
[2024-08-16] MEDS: Morphine Sulfate Immed Release 15 MG TABLET PO (06:18)
[2024-08-16 06:22] VITALS: BP 138/82; PULSE 98; RESP 18; TEMP 36.9; O2SAT 96
== END 2024-08-16 06:23 | disposition home or self-care (01) ==
PROVIDERS: Emergency Provider Internal Medicine; PCP Family Medicine
DX: S39.012A Strain of muscle, fascia and tendon of lower back, initial encounter (principal); I10 Essential (primary) hypertension; X58.XXXA Exposure to other specified factors, initial encounter; Y93.9 Activity, unspecified; Y92.9 Unspecified place or not applicable; Y99.9 Unspecified external cause status
CPT/HCPCS: 99283; 99284

== ENCOUNTER 2024-09-27 12:53 | Outpatient (REF) | payer MEDICAID, SELFPAY ==
--- NOTE | ~2024-09-27 | XR_ITS ---
EXAMINATION: X-ray lumbar spine. CLINICAL INFORMATION: Chronic low back pain. Radiculopathy, lumbar. TECHNIQUE: AP oblique and lateral views. COMPARISON: None FINDINGS: Small marginal osteophyte formation in the anterior T12-L1 level. No acute cortical disruption or malalignment. Spina bifida occulta S1, congenital. No lytic or blastic lesions. XR/XR lumbar spine 4V min IMPRESSION: Mild thoracolumbar spondylosis. Electronically signed by: Dmitry Wesley MD 09/27/2024 02:02 PM EDT
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
== END 2024-09-27 12:54 | disposition home or self-care (01) ==
LOC: HO.HHCX 12:53
PROVIDERS: PCP Family Medicine; Visit Provider Internal Medicine
DX: S33.5XXD Sprain of ligaments of lumbar spine, subsequent encounter (principal)
CPT/HCPCS: 72110

== ENCOUNTER → 2024-09-27 12:55 | Outpatient (BNV) | payer MEDICAID, SELFPAY | PROVIDERS: PCP Family Medicine; Visit Provider Radiology Diagnostic Radiology | DX: M47.815 Spondylosis without myelopathy or radiculopathy, thoracolumbar region (principal) | CPT/HCPCS: 72110 ==

== ENCOUNTER 2024-12-28 10:52 | Outpatient (REF) | payer MEDICAID, SELFPAY ==
--- NOTE | 2024-12-28 11:06 | EMG_ITS ---
Chief complaint: Chronic lower back pain radiating down to the left leg. Reason for referral: Evaluate for neuropathy versus radiculopathy Referred by: Dr. Londono Procedure done: Left lower extremity NCS/EMG Precautions and/or limitations: None The limb temperature was monitored continuously and remained between 32-36 degrees C during the performance of the NCS. Nerve Conduction Studies Anti Sensory Summary Table ?Stim Site NR Onset (ms) Norm Onset (ms) Peak (ms) Norm Peak (ms) O-P Amp (?V) Norm O-P Amp Site1 Site2 Delta-0 (ms) Dist (cm) Mustapha (m/s) Norm Mustapha (m/s) Left Sural Anti Sensory (Lat Mall) Calf ? 2.4 3.0 <4.0 10.9 >5.0 Calf Lat Mall 2.4 14.0 58 Motor Summary Table ?Stim Site NR Onset (ms) Norm Onset (ms) O-P Amp (mV) Norm O-P Amp iAmp (mV) Amp (1st) (%) Site1 Site2 Delta-0 (ms) Dist (cm) Mustapha (m/s) Norm Mustapha (m/s) Left Peroneal Motor (Ext Dig Brev) Ankle ? 3.9 <4.0 11.9 >2.5 15.0 100.0 Ankle Ext Dig Brev 3.9 0.0 B Fib ? 9.5 11.4 14.5 95.8 B Fib Ankle 5.6 32.0 57 >40 Poplt ? 10.3 11.2 14.2 94.1 Poplt B Fib 0.8 5.0 62 >40 Left Tibial Motor (Abd Chavez Brev) Ankle ? 3.7 <5 11.2 >2.5 16.1 100.0 Ankle Abd Chavez Brev 3.7 0.0 Knee ? 11.1 7.6 11.7 67.9 Knee Ankle 7.4 40.0 54 >40 EMG ?Side Muscle Nerve Root Ins Act Fibs Psw Amp Dur Poly Recrt Int Pat Comment Left AbdHallucis MedPlantar S1-2 Nml Nml Nml Nml Nml 0 Nml Complete Left AntTibialis Dp Br Peron L4-5 Incr 1+ 1+ Nml Nml 0 Nml Complete Left PostTibialis Tibial L5, S1 Incr 1+ 1+ Nml Nml 0 Nml Complete Left MedGastroc Tibial S1-2 Nml Nml Nml Nml Nml 0 Nml Complete Left VastusMed Femoral L2-4 Nml Nml Nml Nml Nml 0 Nml Complete Paraspinal EMG ?Side Muscle Nerve Root Ins Act Fibs Psw Comment Right Lumbar Upper Rami Nml Nml Nml Right Lumbar Mid Rami Nml Nml Nml Right Lumbar Lower Rami Nml Nml Nml Left Lumbar Upper Rami Nml Nml Nml Left Lumbar Mid Rami Nml Nml Nml Left Lumbar Lower Rami Incr 1+ 1+ FINDINGS: All motor and sensory nerves tested showed normal latencies, amplitudes and conduction velocities. Concentric needle EMG was performed in selected muscles of the left lower extremity and lumbar paraspinals. Study revealed signs of electric abnormalities as shown in the table above. Left posterior tibialis and tibialis anterior showed increased insertional activity, PSWs and fibrillations. Left lower lumbar paraspinals showed increased insertional activity, PSWs and fibrillations. IMPRESSION: 1. This is an abnormal study. 2. There is electrodiagnostic evidence for left L5-S1 radiculopathy. 3. There is no electrodiagnostic evidence for peroneal neuropathy, tibial neuropathy, lumbosacral plexopathy, or peripheral neuropathy. Thank you for your kind referral. Patrizia Mayers MD, CRESENCIO Board Certified, [place] [employer] and Rehabilitation (ABPMR) Board Certified, [place] Board of Electrodiagnostic Medicine (ABEM) CODIN [id number] MTDD
--- OUTSIDE RECORDS SUMMARY | 2024-12-28 11:49 | XMS_ITS | Clinical Summary ---
Author Organization [employer] Address [address] [facility] [address] [place] [address] Care Team Providers Care Clinical Technologist Name Role Phone SpringJeanine Primary Care Provider Allergies No known active allergies Medications * This document contains information received from the source organization and may not represent a complete record from that organization. Diclofenac Sodium 1 % gel Apply 2 g topically if needed in the morning, at noon, in the evening, and at bedtime (pain). 150 g 3 5 Active hydroCHLOROthia zide (HYDRODiuril) 25 MG tablet Take 1 tablet (25 mg) by mouth Once per day. 90 tablet 3 5 07/06/19 26 Active Mometasone Furoate (Asmanex HFA) 100 MCG/ACT aerosol Inhale 1 Act (100 mcg) 2 times daily. 60 Act 11 5 07/06/19 26 Active albuterol 108 (90 Base) MCG/ACT inhaler Inhale 2 puffs every 4 (four) hours if needed for wheezing or shortness of breath. 18 g 1 5 07/06/19 26 Active naproxen (Naprosyn) 500 MG tablet Take 1 tablet (500 mg) by mouth if needed in the morning and at bedtime for mild pain. 30 tablet 1 5 07/06/19 26 Active Skin Protectants, Misc. (eucerin) cream Apply topically if needed for wound care. 396 g 3 5 07/06/19 26 Active Blood Pressure kit 1 each 1 (one) time per week. 1 kit 5 Active senna-docusate (Senokot S) 8.6-50 MG tablet Take 1 tablet by mouth Once per day. 30 tablet 5 08/19/19 26 Active Tirzepatide-Olvin ght Management (Zepbound) 5 MG/0.5ML solution auto-injector Inject 0.5 mL (5 mg) under the skin 1 (one) time per week. 2 mL 3 5 Active amitriptyline (Elavil) 10 MG tablet Take 1 tablet (10 mg) by mouth at bedtime. 30 tablet 3 5 04/22/20 25 Active tiZANidine (Zanaflex) 2 MG tablet Take 1 tablet (2 mg) by mouth every 8 (eight) hours if needed for muscle spasms. 60 tablet 3 5 10/25/19 26 Active acetaminophen (Tylenol 8 Hour) 650 MG ER tablet Take 1 tablet (650 mg) by mouth every 8 (eight) hours if needed for mild pain. Do not crush, chew, or split. 60 tablet 1 5 10/25/19 26 Active docusate sodium (Colace) 100 MG capsule Take 1 capsule (100 mg) by mouth 2 times daily. 180 capsule 3 5 10/25/19 26 Active polycarbophil (Fibercon) 625 MG tablet Take 1 tablet (625 mg) by mouth 2 times daily. 180 tablet 3 5 10/25/19 26 Active polyethylene glycol, PEG, 3350 (MiraLax) 17 GM/SCOOP powder Take 17 g by mouth if needed each day (constipation) . 527 g 1 5 10/25/19 26 Active Omeprazole 20 MG tablet delayed-release Take 1 tablet (20 mg) by mouth 2 times daily. 180 tablet 3 5 Active calcium carbonate (Tums) 500 MG chewable tablet Chew 1 tablet (500 mg) 2 times daily. 60 tablet 11 5 Active Active Problems Problem Noted Date Diagnosed Date Class 3 severe obesity due t o excess calories with serious comorbidity and body mass index (BMI) of 40.0 to 44.9 in adult 08/18/2024 Assessment & Plan (08/18/2024 3:59 PM EDT): Discussed re weight reduction options including exercise, life style modifications, diet. Recommended to decrease soda and sugary beverage consumption, increase protein intake with meals (at least 1 portion of protein with each meal) to assist with satiety, increase dietary fiber Recommended at least 150 min/week of moderate intensity exercise. Discussed about medication management, phentermine is contraindicated due to uncontrolled hypertension. Will do PA for Zepbound. Patient to follow-up with PCP Lumbar sprain 08/18/2024 Assessment & Plan (08/18/2024 3:58 PM EDT): Most likely herniated lumbar disc Will order x-ray and refer to PT Gave him information regarding the stretching exercises for lower back Continue Tylenol along with Robaxin and diclofenac gel as needed Advised regarding heat to affected area Advised against bending over and lifting heavy objects, he will be out of work this week and go back next week on light duty for the following 2 weeks, he will follow-up with PCP we discussed importance of weight reduction, he will follow-up with his PCP in this regard Anxiety 08/03/2023 Major depression 11/18/2022 Assessment & [...] Obstructive sleep apnea 04/30/2016 Essential hypertension 03/20/2016 Assessment & Plan (08/18/2024 3:59 PM EDT): Uncontrolled today, unclear if it is related only to pain, he has been uncontrolled in the past as well Continue morphine for pain for now and check BP an hour after taking morphine Continue HCTZ 25 mg and follow-up with PCP next month Advised regarding weight reduction to decrease morbidity and mortality Chronic low back pain 03/15/2015 Elevated fasting glucose 03/15/2015 Mild intermittent asthma 03/15/2015 Posttraumatic stress disorder 03/15/2015 Vitamin D deficiency 03/15/2015 Encounters Date Type Department Care Team Description 10/24/2024 10:15 AM EDT Office Visit [facility] [address] [place] [address] Jeanine Londono DO Chronic bilateral low back pain with left-sided sciatica (Primary Dx); Class 3 severe obesity with serious comorbidity and body mass index (BMI) of 40.0 to 44.9 in adult, unspecified obesity type; Constipation, unspecified constipation type 10/24/2024 Travel 10/17/2024 Refill [facility] [address] [place] [address] Jeanine Londono DO from Last 3 Months Immunizations Immunization Administration Dates Next Due DTaP 10/02/1992, 0,09/22/1988,07/09,01/14/1988 [...] Answer Date Recorded Patient Health Questionnaire-9 Score 0 09/23/2024 Patient Health Questionnaire-9 Score 0 09/23/2024 Last PHQ-9: Questionnaire Data Not on file 0 09/23/2024 Housing Stability Answer Date Recorded What is your housing situation today? I have annalise ponce 09/23/[address] you li ve. Do you have problems with any of the following? None of the above 09/23/2024 Food Insecurity Answer Date Recorded Within the past 12 months, y ou worried that your food would run out before you got money to buy more: Never True 09/23/2024 Within the past 12 months,th e food [...] shut off services in your home? No 09/23/2024 Depression Answer Date Recorded Patient Health Questionnaire-2 Score 0 09/23/2024 Internet Access Answer Date Recorded Internet Access Q1 Yes 09/23/2024 Internet Access Q2 Not on file 09/23/2024 Sex and Gender Information Value Date Recorded Sex Assigned at Male 03/03/2022 10:15 AM EDT Legal Sex Male 10:15 AM EDT Gender Identity Male 03/03/2022 10:15 AM EDT Sexual Orientation Straight 03/03/2022 10 :15 AM EDT Last Filed Vital Signs Vital Sign Reading Time Taken Comments Blood Pressure 132/78 10/24/2024 10:50 AM EDT Pulse 70 10/24/2024 10:50 AM EDT Temperature 36.6 C (97.8 F) 10/24/2024 10:50 AM EDT Respiratory Rate 20 10/24/2024 10:50 AM EDT Oxygen Saturation 95% 08/18/2024 10:34 AM EDT Inhaled Oxygen Concentration - - Weight 114 kg (251 lb 6 oz) 10/24/2024 10:50 AM EDT Height 167.6 cm (5' 6 ) 08/18/2024 10:34 AM EDT Body Mass Index 40.57 08/18/2024 10:34 AM EDT Plan of Treatment Health Maintenance Due Date Last Done Comments Dental Prophylaxis 1985 Disability Screening 1985 Family Planning (PISQ) 08/21/2002 HPV Vaccines (1 - Male 3-dose series) 08/21/2002 Dental Oral Exam 04/13/2009 10/11/2008 Dental X-Ray: Bitewings 10/12/2009 10/11/2008, 03/14 Dental X-Ray: Full Mouth 03/15/2011 03/14/2008 Pneumococcal Vaccine: Pediatrics (0 to 5 Years) and At-Risk Patients (6 to 49) Years (2 of 2 - PCV) 03/15/2016 03/15/2015 SDOH Screening 07/25/2023 07/24/2022 COVID-19 Vaccine ( season) 2024 07/24/2022, 07/16/2021, 05/21/2021 DTaP/Tdap/Td Vaccines (7 - Td or Tdap) 06/09/2024 06/09/2014, 11/15/2007, 08/09/1997, Additional history exists Influenza Vaccine (#1) 2025 , 04/01/2023, 07/24/2022, Additional history exists Tobacco Screening 08/18/2025 08/18/2024 Alcohol/Substance Use Screening 09/23/2025 09/23/2024 Depression Screening 09/23/2025 09/23/2024, 09/24/19 25 Lipid Panel 07/05/2029 07/05/2024, 07/03, 12/10/2020 Zoster Vaccines (1 of 2) 08/21/2037 RSV Patients and Patients Aged 60 years or older (1 - 1-dose 75+ series) 08/21/2062 HIB Vaccines Completed 02/11/1989 IPV Vaccines Completed 10/02/1992, 09/02, 07/09/1988, Additional history exists Hepatitis B Vaccines Completed 01/12/1996, 08/31/1995, 07/31/1995 Hepatitis A Vaccines Completed 04/08/2018, 05/25/19 18 HIV Screening Completed 07/05/2024, 07/03, 12/10/2020 Hepatitis C Screening Completed 07/05/2024 , 07/24/2022, 12/10/2020 Meningococcal B Vaccine Aged Out No l onger eligible based on patient's age to complete [...] Procedure Name Priority Date/Time Associated Diagnosis Comments XR LUMBAR SPINE COMPLETE 4+ VIEWS Routine 09/27/2024 12:55 PM EDT Lumbar sprain, subsequent encounter HEPATITIS C AB W/REFL TO HCV RNA, QN, PCR Routine 07/05/2024 1:29 PM EST Essential hypertension Fatty liver Gallbladder polyp HIV 1/2 ANTIGEN/ANTIBODY, FOURTH GENERATION W/RFL Routine 07/05/2024 1:29 PM EST Essential hypertension Fatty liver Gallbladder polyp LIPID PANEL, STANDARD Routine 07/05/2024 1:29 PM EST Essential hypertension Fatty liver Gallbladder polyp BITEWINGS - 4 RADIOGRAPHIC IMAGES Routine 10/11/2008 12:00 AM EDT COMPREHENSIVE ORAL EVALUATION - NEW OR ESTABLISHED PATIENT Routine 10/11/2008 12:00 AM EDT INTRAORAL - COMPLETE SERIES OF RADIOGRAPHIC IMAGES Routine 03/14/2008 12:00 AM EST from Last 3 Months or Most Recently Relevant to Health Maintenance Results * XR Lumbar Spine Complete 4+ Views (09/27/2024 12:55 PM EDT) Anatomical Region Laterality Modality Spine, L-spine Radiographic Omayra ging 09/27/2024 12:5 5 PM EDT Narrative 09/27/2024 2:05 PM EDT [address] [address] XRay Report Signed Patient: Nilson Stubbs MR#: [id number] 38 : 1985 Acct:[id number] Age/Sex: 39 / M ADM Date: 09/27/24 [facility] Dr: Katie Benz MD Ordering Physician: Katie Benz MD Date of Service: 09/27/24 Procedure(s): XR lumbar spine 4V min Accession Number(s): [id number] cc: Katie Benz MD; Jeanine Londono DO EXAMINATION: X-ray lumbar spine. CLINICAL INFORMATION: Chronic low back pain. Radiculopathy, lumbar. TECHNIQUE: AP oblique and lateral views. COMPARISON: None FINDINGS: Small marginal osteophyte formation in the anterior T12-L1 level. No acute cortical disruption or malalignment. Spina bifida occulta S1, congenital. No lytic or blastic lesions. XR/XR lumbar spine 4V min IMPRESSION: Mild thoracolumbar spondylosis. Electronically signed by: Dmitry Wesley MD 09/27/2024 02:02 PM EDT Dictated By: Dmitry Tucker MD Signed By: <Electronically signed by Dmitry Dixon MD in OV> 09/27/24 1402 DD/ 1255 TD/TT: 09/27/24 1302 Coping Machine Operator: Procedure Note Donotuseinterpreter, Image - 09/27/[address] [address] XRay Report Signed Patient: Nilson Stubbs GMR#: [id number] 38 : 1985Acct:[id number] Age/Sex: 39 / MADM Date: 09/27/24 Loc: [facility] Attending Dr: Katie Benz MD Ordering Physician: Katie Benz MD Date of Service: 09/27/24 Procedure(s): XR lumbar spine 4V min Accession Number(s): [id number] cc: Katie Benz MD; Jeanine Londono DO EXAMINATION: X-ray lumbar spine. CLINICAL INFORMATION: Chronic low back pain. Radiculopathy, lumbar. TECHNIQUE: AP oblique and lateral views. COMPARISON: None FINDINGS: Small marginal osteophyte formation in the anterior T12-L1 level. No acute cortical disruption or malalignment. Spina bifida occulta S1, congenital. No lytic or blastic lesions. XR/XR lumbar spine 4V min IMPRESSION: Mild thoracolumbar spondylosis. Electronically signed by: Dmitry Wesley MD 09/27/2024 02:02 PM EDT Dictated By: Dmitry Tucker MD Signed By: <Electronically signed by Dmitry Dixon MDin OV> 09/27/24 1402 DD/ 1255 TD/TT: 09/27/24 1302 Coping Machine Operator: Katie Benz MD IMG XR PROCEDURES Final Result * Hepatitis C Antibody with Reflex to HCV, RNA, Quantitative, Real-Time PCR (07/05/2024 1:29 PM EST) Hepatitis C Antibody Nonreactive Nonreactive [facility] Comment:Antibodies to HCV no t detected; does not exclude early acuteHCV infection. Blood Venous blood specimen / Unknown 07/05/2024 1:29 PM EST 07/05/2024 4:06 PM EST Jeanine Londono DO LAB BLOOD ORDERABLES Final R esult [facility] [address] [place] [address] [phone] * HIV-1/2 Antigen and Antibodies, Fourth Generation, with Reflexes (07/05/2024 1:29 PM EST) HIV AB/AG Nonreactive Nonreactive [facility] Comment:HIV-1 p24 Ag and/or HIV-1/HIV-2 Ab not detected.A test result that is nonreactive does not exclude thepossibility of exposure to or infection with HIV-1 and/orHIV-2. Nonreactive results in this assay for individualswith prior exposure to HIV-1 and/or HIV-2 may be due toantigen and antibody levels that are below the limit ofdetection of this assay.The [employer] HIV Ag/Ab Combo assay result andsupplemental assay results should be interpreted inconjunction with the patient's clinical presentation,history and other laboratory results. If the results areinconsistent with clinical evidence, additional testing issuggested to confirm the result. Blood Venous blood specimen / Unknown 07/05/2024 1:29 PM EST 07/05/2024 4:06 PM EST us Jeanine Londono DO LAB BLOOD ORDERABLES Final R esult [facility] [address] [place] [address] [phone] * (ABNORMAL) Lipid Panel, Standard (07/05/2024 1:29 PM EST) Triglycerides 192(H) <150 mg/dL [facility] Comment:Desirable Triglyceri de: less than 150 mg/dLBorderline High Triglyceride 150-199 mg/dLHigh Triglyceride: 200-499 mg/dLVery High Triglyceride: greater than or equal to 5OO mg/dL Cholesterol 184 <200 mg/dL [facility] Comment:Desirable Cholestero l: less than 200 mg/dLBorderline High Cholesterol: 200-239 mg/dLHigh Cholesterol: greater than 239 mg/dL LDL Cholesterol Calculated 108(H) <100 mg/dL [facility] Comment:Desirable LDL: less than 100 mg/dLNear Optimal/Above Optimal LDL: 110- 129 mg/dLBorderline High LDL: 130-159 mg/dLHigh LDL: 160-189 mg/dLVery High LDL: greater than or equal to 190 mg/dL HDL Cholesterol 38(L) >40 mg/dL [facility] Comment:Desirable HDL: great er than 40 mg/dL Note: This HDL assay may give artificially low results in patients with liver disease. Blood Venous blood specimen / Unknown 07/05/2024 1:29 PM EST 07/05/2024 4:06 PM EST us Jeanine Londono DO LAB BLOOD ORDERABLES Final R esult [facility] [address] [place] [address] [phone] from Last 3 Months or Most Recently Relevant to Health Maintenance Insurance [facility] C[facility] ST[place] AD[place] Care Teams Clinical Technologist Relationship Specialty Start Date End Date Jeanine Londono DO [address] [place] [id number] PCP - General Family Medicine 05/04/18
--- OUTSIDE RECORDS SUMMARY | 2024-12-28 11:49 | XMS_ITS | Encounter Summary ---
Author Organization [employer] Address [address] [place] [address] [address] [place] [address] Care Team Providers Care Seed Potato Arranger Name Role Phone Jeanine Londono DO Primary Care Provider [phone] Reason for Visit * Reason Onset Date Comments Nurse Triage 03/16/2023 Encounter Details Date Type Department Care Team ([facility] st Contact Info) Description 03/16/2023 Telephone [facility] [address] [place] [address] Jeanine Londono DO [address] [place] [address] Nurse Triage Social History Tobacco Use Types [...] ring. Pt is advised to come to [facility] today, opened till 8pm. Pt agrees with [...] accepted this outcome Please contact pt at [phone] documented in this encounter Plan of Treatment Not on file documented as of this encounter Visit Diagnoses Not on filedocumented in this encounter Additional Health Concerns Assessment Noted Time PHQ-9 Depression Total Score: 15 023 11:24 AM EDT documented as of this encounter Care Teams Seed Potato Arranger Relationship Specialty Start Date End Date Jeanine Londono DO [address] [place] [address] PCP - General Family Medicine 05/04/18 documented as of this encounter
--- OUTSIDE RECORDS SUMMARY | 2024-12-28 11:49 | XMS_ITS | Encounter Summary ---
Author Organization [employer] Address [address] [place] [address] [address] [place] [address] Care Team Providers Care Can Dragger Name Role Phone Jeanine Londono DO Primary Care Provider [phone] Reason for Visit * Reason Onset Date Comments Letter for School/Work 09/04/2022 Encounter Details Date Type Department Care Team ([facility] st Contact Info) Description 09/04/2022 Telephone [facility] [address] [place] [address] Jeanine Londono DO [address] [place] [address] Letter for School/Work Social History Tobacco Use [...] regarding DMV paper. Please contact pt at [phone] documented in this encounter Plan of Treatment Not on file documented as of this encounter Visit Diagnoses Not on filedocumented in this encounter Additional Health Concerns Assessment Noted Time PHQ-9 Depression Total Score: 0 07/25/19 23 10:20 AM EDT documented as of this encounter Care Teams Can Dragger Relationship Specialty Start Date End Date Jeanine Londono DO [address] [place] [address] PCP - General Family Medicine 05/04/18 documented as of this encounter
== END 2024-12-28 10:53 | disposition home or self-care (01) ==
LOC: HO.NEURO 10:52
PROVIDERS: PCP Family Medicine; Visit Provider Family Medicine
DX: M54.42 Lumbago with sciatica, left side (principal); G89.29 Other chronic pain; R94.131 Abnormal electromyogram [EMG]
CPT/HCPCS: 95886; 95908

== ENCOUNTER → 2024-12-28 11:06 | Outpatient (BNV) | payer MEDICAID, SELFPAY | PROVIDERS: PCP Family Medicine; Visit Provider Physical Medicine & Rehabilitation | DX: M54.17 Radiculopathy, lumbosacral region (principal) | CPT/HCPCS: 95886; 95908 ==